=== PATIENT | female | born 1980 | race Caucasian/White ===

== ENCOUNTER 2017-12-25 01:54 | Observation (INO) | payer BC ==
[2017-12-25 02:50] VITALS: BP 113/56; PULSE 65
[2017-12-25 03:20] LABS: Appearance SLIGHTLY CLOUDY (CLEAR); Bilirubin NEGATIVE (NEGATIVE); Blood NEGATIVE Ery/ul (0-5); Glucose NEGATIVE (NEGATIVE); Ketones TRACE (NEGATIVE); Leukocyte Esterase NEGATIVE (NEGATIVE); Nitrite NEGATIVE (NEGATIVE); Protein,Urine Dip NEGATIVE (Negative); Specific Gravity 1.017 (1.005-1.025); Urobilinogen 4 mg/dL (0-1)
== END 2017-12-25 03:50 | disposition home or self-care (01) ==
LOC: MED SURG 01:54 → MERGE 01:54
PROVIDERS: ADMIT Family Medicine; ATTEND Family Medicine
DX: Z34.83 Encounter for supervision of other normal pregnancy, third trimester (principal)
CPT/HCPCS: 81001; G0378

== ENCOUNTER 2018-03-04 05:07 | Inpatient (IN) | payer BC ==
[~2018-03-04 05:07] MED LIST: BICITRA 30 ML CUP PO SCH; CEFAZOLIN 2 GM-D5W BAG** 2 GM/50 ML ML IV SCH; Lactated Ringers 1,000 ML IV ONE; Lactated Ringers 1,000 ML IV SCH; Pepcid 20 MG VIAL IV SCH; Reglan 10 MG/2 ML IV SCH
[2018-03-04 05:46] LABS: Hematocrit 40.2 % (35-47); Hemoglobin 13.6 gm/dl (12.0-16.0); Mean Cell Volume 89.5 fl (78-100); Mean Corpuscular Hemoglobin 30.3 pg (26-32); Mean Corpuscular Hgb Concent. 33.8 g/dl (32-36); Platelet Count 229 K/mm3 (150-450); Red Blood Count 4.49 M/mm3 (4.1-5.4); Red Cell Distribution Width 13.9 % (11.5-14.0); White Blood Count 10.2 K/mm3 (4.0-10.5)
[2018-03-04 05:54] LABS: INR 0.97 (0.8-3.0); PROTIME 11.3 SECONDS (9.95-12.35)
[2018-03-04 05:57] LABS: PTT 29.2 SECONDS (25.3-37.0)
[2018-03-04 06:05] LABS: Appearance SLIGHTLY CLOUDY (CLEAR); Bacteria MANY /HPF (NEGATIVE); Bilirubin NEGATIVE (NEGATIVE); Blood NEGATIVE Ery/ul (0-5); Epithelial Cells FEW /HPF (FEW); Glucose NEGATIVE (NEGATIVE); Hyaline Casts 0-2 /LPF (0-2); Ketones NEGATIVE (NEGATIVE); Leukocyte Esterase SMALL (NEGATIVE); Nitrite NEGATIVE (NEGATIVE); Protein,Urine Dip NEGATIVE (Negative); Specific Gravity 1.014 (1.005-1.025); Urobilinogen 2 mg/dL (0-1)
[2018-03-04 06:12] LABS: Amphetamine,Urine NEGATIVE (NEGATIVE); Barbiturate,Urine NEGATIVE (NEGATIVE); Benzodiazepine,Urine NEGATIVE (NEGATIVE); Cocaine,Urine NEGATIVE (NEGATIVE); Methadone,Urine NEGATIVE (NEGATIVE); Opiate,Urine NEGATIVE (NEGATIVE); PCP,Urine NEGATIVE (NEGATIVE); THC,Urine NEGATIVE (NEGATIVE)
[2018-03-04 06:52] LABS: ABO TYPING A; Antibody Screen NEGATIVE (NEGATIVE); RH TYPING POSITIVE
[2018-03-04] MEDS ORDERED: Lactated Ringers 1,000 ML IV ONE (08:06)
[2018-03-04] MEDS ORDERED: DEMEROL 50 MG ONE (08:32)
--- NOTE | 2018-03-04 08:48 | OP ---
SURGERY DATE/TIME: 03/04/2018 0703 PREOPERATIVE DIAGNOSES: 1) History of prior section. 2) Term intrauterine . 3) Chronic hypertension. 4) Desires permanent sterilization. POSTOPERATIVE DIAGNOSES: 1) History of prior section. 2) Term intrauterine . 3) Chronic hypertension. 4) Desires permanent sterilization. PROCEDURES: 1) Repeat low transverse section. 2) Bilateral tubal ligation. SURGEON: Lenard Alvarado M.D. ESTIMATED BLOOD LOSS: 400 cc. IV FLUIDS: 2 liters of crystalloid. URINE OUTPUT: 100 cc of clear straw-colored urine. ANESTHESIA: Spinal by Raoul Saavedra CRNA. SPECIMENS: Bilateral fallopian tube segments. DESCRIPTION OF PROCEDURE: After informed written consent was obtained, the patient was taken to the operating room. She underwent spinal anesthesia and was prepped and draped in the usual sterile fashion. After adequate level of anesthesia was assessed, a low transverse skin incision was made through the area of prior scar down to the level of the fascia which was nicked on both sides of the midline and extended in horizontal fashion. The superior edge of the fascia was grasped with Arben clamps and the underlying rectus muscles were dissected free. The same was repeated inferiorly. The peritoneal cavity was opened in a blunt fashion carefully. Bladder flap was then created and reflected over the lower uterine segment. A horizontal uterine incision was made by knife and carried down to the level of the amniotic membranes which were carefully artificially ruptured. A viable male infant was delivered from the vertex presentation. He had a loose nuchal cord x1 which was reduced at the time of deliver. Oropharynx and nares were bulb suctioned free and then he was handed off to the awaiting nursery team. When attempting to exteriorize the uterus, it was noted there were extensive adhesions between the posterior surface of the rectus muscles in the anterior surface of the uterine wall. These were carefully taken down with electrocautery to free up the uterus and the uterus was exteriorized. The uterine incision was closed with #1 chromic in a running locked fashion. Good closure and good hemostasis were achieved. There was an area of bleeding at the left lateral aspect of the incision which was reinforced with a second layer of chromic and good hemostasis was achieved. The right fallopian tube was identified and carried down to the fimbrial edge, grasped with a [place] and cautery used to make a window in the mesoappendix. The proximal and distal tube segments of the tube were then ligated with chromic tie and the interceding tube segment was dissected free with Metzenbaum scissors. The free edge of the tube was visible and cauterized with electrocautery. The same was repeated on the left side. Both tube segments were submitted for pathology. The posterior cul-de-sac was wiped free of blood and clot. The uterus was returned to the peritoneal cavity. Lateral gutters were wiped free of blood and clot and the uterine incision was again verified to have good closure and good hemostasis. Next, the fascia was closed with 0 Vicryl in a running fashion with good closure and good hemostasis were achieved. Subcutaneous fat was irrigated with warm, sterile saline and the skin layer was closed with 4-0 undyed Vicryl in subcuticular fashion. Steri-Strips and occlusive dressing were placed over the incision. The patient was transferred to the recovery room in good condition.
[2018-03-04] MEDS ORDERED: Zofran 4 MG/2 ML VIAL IV PRN (09:00)
[2018-03-04] MEDS ORDERED: DEMEROL 50 MG IV PRN (09:00)
[2018-03-04] MEDS ORDERED: TYLENOL EXTRA STRENGTH 500 MG PO PRN (09:00)
[2018-03-04] MEDS ORDERED: CLARITIN 10 MG PO PRN (09:00)
[2018-03-04] MEDS ORDERED: BENADRYL 50 MG/ML IV PRN (09:00)
[2018-03-04] MEDS ORDERED: MORPHINE SULFATE 2 MG INJ IV PRN (09:00)
[2018-03-04] MEDS ORDERED: PERCOCET TABLET 5/325MG PO PRN (09:00)
[2018-03-04] MEDS ORDERED: Dulcolax 10 MG SUPP PR PRN (09:00)
[2018-03-04] MEDS ORDERED: LANSINOH 40 GM TOP PRN (09:00)
[2018-03-04] MEDS ORDERED: Nubain 10 MG/ML IV PRN (09:00)
[2018-03-04] MEDS ORDERED: HOLD NARCOTIC ANALGESICS AND SEDATIVES X24 HR MC PRN (09:00)
[2018-03-04] MEDS ORDERED: Anucort-HC SUPPOSITORY PR PRN (09:00)
[2018-03-04] MEDS ORDERED: Dermoplast Spray TP PRN (09:00)
[2018-03-04] MEDS ORDERED: Narcan 0.4 MG/ML IV PRN (09:00)
[2018-03-04] MEDS ORDERED: Ambien 10 MG PO PRN (09:00)
[2018-03-04] MEDS ORDERED: CORTISONE 1% CREAM TP PRN (09:00)
[2018-03-04] MEDS ORDERED: Astramorph-Pf 5 MG/10 ML IV ONE (09:17)
[2018-03-04] MEDS ORDERED: SUBLIMAZE 100 MCG/2 ML IV ONE (09:17)
[2018-03-04] MEDS: Dextrose 5%-Lr IV Solution 1000 ML 1,000 ML IV SCH ×2 (09:54→18:01)
[2018-03-04 10:26] LABS: Appearance CLEAR (CLEAR); Bilirubin NEGATIVE (NEGATIVE); Blood NEGATIVE Ery/ul (0-5); Epithelial Cells RARE /HPF (FEW); Glucose NEGATIVE (NEGATIVE); Ketones NEGATIVE (NEGATIVE); Leukocyte Esterase NEGATIVE (NEGATIVE); Mucus SLIGHT /HPF (NEGATIVE); Nitrite NEGATIVE (NEGATIVE); Protein,Urine Dip NEGATIVE (Negative); Urobilinogen 4 mg/dL (0-1)
[2018-03-04] MEDS: THERAGRAN MULTIVITAMIN PO SCH (15:01)
[2018-03-04] MEDS: Trandate 100 MG PO SCH ×3 (15:01→22:46)
[2018-03-04] MEDS ORDERED: Zofran 4 MG/2 ML VIAL IV ONE (15:59)
[2018-03-04] MEDS ORDERED: Decadron 4 MG INJ IV ONE (15:59)
[2018-03-04] MEDS ORDERED: Naropin 0.5% 30 ML VIAL IJ ONE (15:59)
[2018-03-04] MEDS ORDERED: Marcaine Spinal Ampul IJ ONE (15:59)
[2018-03-04] MEDS ORDERED: TORAdol 30 mg Injection IV ONE (15:59)
[2018-03-04] MEDS ORDERED: Xylocaine-Mpf 2% 5 Ml Vial IJ ONE (15:59)
[2018-03-04] MEDS ORDERED: Pitocin 10 UNITS/ML IV ONE (15:59)
[2018-03-04] MEDS: Colace 100 MG PO SCH (21:27)
[2018-03-04] MEDS: MOTRIN 400 MG PO PRN (23:51)
[2018-03-04] MEDS: Mylicon 80MG PO PRN (23:54)
[2018-03-05 05:27] VITALS: O2SAT 98
[2018-03-05 05:37] LABS: Hematocrit 32.2 % (35-47); Hemoglobin 10.6 gm/dl (12.0-16.0); Mean Corpuscular Hemoglobin 29.9 pg (26-32); Mean Corpuscular Hgb Concent. 32.9 g/dl (32-36); Platelet Count 238 K/mm3 (150-450); Red Blood Count 3.54 M/mm3 (4.1-5.4); Red Cell Distribution Width 13.5 % (11.5-14.0); White Blood Count 15.2 K/mm3 (4.0-10.5)
[2018-03-05 07:37] LABS: BAND 12 % (0.0-2.0); Lymphocytes 16 % (24-44); Monocyte 5 % (0.0-12.0); Neutrophils 67 % (36.0-66.0); Total Cells Counted 100
[2018-03-05 07:39] LABS: Platelet Estimate NORMAL (NORMAL)
[2018-03-05] MEDS ORDERED: Phenergan 25 MG INJ IM PRN (09:00)
[2018-03-05] MEDS ORDERED: DEMEROL 75 MG IM PRN (09:00)
[2018-03-05] MEDS: Colace 100 MG PO SCH ×2 (09:24→21:30)
[2018-03-05] MEDS: FERREX 150 PO SCH (09:24)
[2018-03-05] MEDS: NORCO 5/325 MG PO PRN ×2 (09:24→21:30)
[2018-03-05] MEDS: Mylicon 80MG PO PRN ×2 (09:25→19:55)
[2018-03-05] MEDS: Trandate 100 MG PO SCH ×2 (09:25→21:30)
[2018-03-05] MEDS: THERAGRAN MULTIVITAMIN PO SCH (09:25)
[2018-03-05] MEDS ORDERED: [UNRECOGNIZED DRUG - REMARK] PO SCH (10:00)
[2018-03-05] MEDS: MOTRIN 400 MG PO PRN ×2 (11:31→17:46)
[2018-03-06] MEDS: NORCO 5/325 MG PO PRN (03:07)
[2018-03-06] MEDS: Mylicon 80MG PO PRN ×2 (03:25→09:07)
[2018-03-06 05:15] VITALS: PULSE 71
[2018-03-06] MEDS: Trandate 100 MG PO SCH (08:51)
[2018-03-06] MEDS: Colace 100 MG PO SCH ×2 (08:51→09:47)
[2018-03-06] MEDS: THERAGRAN MULTIVITAMIN PO SCH (08:51)
[2018-03-06] MEDS: MOTRIN 400 MG PO PRN (08:51)
[2018-03-06] MEDS: FERREX 150 PO SCH ×2 (08:52→09:47)
[2018-03-06 09:46] VITALS: BP 113/57
--- NOTE | 2018-03-06 10:56 | PCM.DS ---
Discharge Summary Date of Admission: 03/04/18 05:07 Admitting Physician: JOSEPH KING Consults: Consults on Case 03/04/18 05:00 Notify Anesthesia Provider ROUTINE Notify Physician OF ADMISSION Primary Care Provider: JOSEPH KING Allergies Allergies amlodipine besylate [From [facility]] Allergy (Intermediate, Verified 12/28/17 08: 08) Swelling of Feet lisinopril Allergy (Mild, Verified 12/28/17 08:08) Cough Hospital Summary - Hospital Course Hospital Course: Pt came in 37 yo at 39 weeks for repeat and BTL. pre-existing HTN. She had without complication. . Hgb from 13.6 on admission to 10.6 on the first postoperative day. Her urine culture was negative. BP have been well controlled on labetalol 100mg po BID. Her bleeding is light. she is taking norco and ibuprofen for pain, with mylicon drops for gas pain. Will be discharged to home today with baby. - Vitals & Intake/Output Vital Signs: Vital Signs Temperature 97.9 F 03/06/18 02:00 Pulse Rate 71 03/06/18 09:00 Respiratory Rate 18 03/06/18 09:00 Blood Pressure 113/57 03/06/18 09:00 O2 Sat by Pulse Oximetry 98 03/05/18 05:00 Intake & Output: Intake & Output 03/03/18 03/04/18 03/05/18 03/06/18 11:59 11:59 11:59 11:59 Intake Total 800 1100 Output Total 3150 Balance -2350 1100 Weight 99.79 kg - Lab Result Diagrams: 03/05/18 05:10 Micro Results-Entire Visit: Microbiology 03/04/18 09:56 Urine Culture - Preliminary Catherized NO GROWTH TO DATE - Procedures and Test Procedures and Tests throughout Hospitalization: Therapy Orders & Screens 03/04/18 08:10 Standby Routine Comment: Diagnosis: Repeat Section with Bilateral Tubal Ligation Discharge Exam General Appearance: no apparent distress, alert, obese Neurologic Exam: oriented x 3, cooperative Skin Exam: normal color, warm, dry, No rash Respiratory Exam: normal breath sounds, lungs clear, No crackles/rales, No rhonchi, No wheezing Cardiovascular Exam: regular rate/rhythm, normal heart sounds, No murmur Gastrointestinal/Abdomen Exam: soft, normal bowel sounds, other (fundus firm under umbilicus wound with dried blood, well approximated, no exudate/erythema.) , No tenderness Extremity Exam: swelling (trace pretibial edema bilat), other (pat refl 2+ bilat. 1 beat clonus on L, none on R) Back Exam: normal inspection, No rash Final Diagnosis/Problem List - Final Discharge Diagnosis/Problem (1) Status post delivery Current Visit: Yes Status: Acute Assessment & Plan: doing great, POD #2 today. Home with baby. . (2) Hypertension Current Visit: No Status: Acute Assessment & Plan: BP well controlled on labetalol. discussed warning s/sx for pre-eclampsia. - Discharge Disposition: Home, Self-Care Condition: Stable Prescriptions: No Action Labetalol HCl 100 mg [Trandate 100 MG] 100 mg PO BID Doxylamine Succinate/Vit B6 [Diclegis Dr 10-10 mg Tablet] 2 tab PO HS Pnv No.95/Ferrous Fum/Folic AC [ Vitamins Tablet] 1 tab PO DAILY Follow up with: JOSEPH KING MD [Primary Care Provider] - 1 Week
--- NOTE | 2018-03-06 11:02 | PCM.DCORD ---
- Discharge Disposition: Home, Self-Care Condition: Good Prescriptions: New Docusate Sodium 100 mg [Colace 100 MG] 100 mg PO BID PRN #30 capsule PRN Reason: Constipation Ibuprofen 600 mg PO TID PRN #35 tablet PRN Reason: Pain Simethicone 80 mg [Mylicon 80MG] 80 mg PO QID PRN PRN #60 tab.chew PRN Reason: Indigestion Hydrocodone Bit/Acetaminophen [[place] 5-325 Tablet] 1 each PO Q4HPRN PRN #30 tablet MDD 6 PRN Reason: Severe Pain Continue Labetalol HCl 100 mg [Trandate 100 MG] 100 mg PO BID Pnv No.95/Ferrous Fum/Folic AC [ Vitamins Tablet] 1 tab PO DAILY Discontinued Doxylamine Succinate/Vit B6 [Diclegis Dr 10-10 mg Tablet] 2 tab PO HS Additional Instructions: Call [facility] with any blood pressures over 160 systolic or over 110 diastolic. Call or go to ER/LR with severe headache, seeing spots, sudden increase in swelling, or right upper quadrant pain. Follow up with: JOSEPH KING MD [Primary Care Provider] - 1 Week
[2018-03-06 11:52] LABS: ALBUMIN 3.3 g/dL (3.5-5.0); BILIRUBIN,TOTAL 0.3 mg/dL (0.2-1.3); Direct Bilirubin 0.3 mg/dL (0.0-0.4); Total Protein 6.1 g/dL (6.3-8.2)
== END 2018-03-06 13:40 | disposition home or self-care (01) | DRG 784 ==
LOC: OB 05:07
PROVIDERS: ADMIT Family Medicine; ATTEND Family Medicine
PROC: 10D00Z1 Extraction of Products of Conception, Low, Open Approach (ICD-10-PCS; principal; 2018-03-04)
PROC: 0UL70ZZ Occlusion of Bilateral Fallopian Tubes, Open Approach (ICD-10-PCS; 2018-03-04)
DX: O34.211 Maternal care for low transverse scar from previous cesarean delivery (principal); E71.54 Other peroxisomal disorders; O75.82 Onset (spontaneous) of labor after 37 completed weeks of gestation but before 39 completed weeks gestation, with delivery by (planned) cesarean section; Z3A.39 39 weeks gestation of pregnancy; Z37.0 Single live birth; Z30.2 Encounter for sterilization; O09.523 Supervision of elderly multigravida, third trimester
CPT/HCPCS: 36415; 64488; 76937; 76942; 80076; 80307; 81001; 85025; 85027; 85610; 85730; 86850; 86900; 86901; 87086; 88302; 94799; J0690; J1100; J1885; J2175; J2274; J2405; J2590; J2795; J3010; A9270-GY

== ENCOUNTER 2018-03-09 17:42 | Observation (INO) | payer BC ==
[2018-03-09 18:11] LABS: BASOPHIL % 0.4 % (0.0-0.4); Basophil (Absolute #) 0.03 (0-0.4); Eosinophil % 2.2 % (0.00-5.0); Eosinophil (Absolute #) 0.17 (0-0.5); Granulocytes % 64.3 % (36.0-66.0); Hematocrit 33.9 % (35-47); Lymphocyte (Absolute #) 2.05 (1.0-4.6); Mean Cell Volume 91.9 fl (78-100); Mean Corpuscular Hemoglobin 29.8 pg (26-32); Mean Corpuscular Hgb Concent. 32.4 g/dl (32-36); Mean Platelet Volume 9.7 fl (6-9.5); Monocyte (Absolute #) 0.56 (0.0-1.3); Monocytes % 7.1 % (0.0-12.0); Platelet Count 301 K/mm3 (150-450); Red Blood Count 3.69 M/mm3 (4.1-5.4); Red Cell Distribution Width 13.4 % (11.5-14.0); White Blood Count 7.9 K/mm3 (4.0-10.5)
--- NOTE | 2018-03-09 18:11 | ERPHSYRPT ---
- History of Present Illness Time Seen by Provider: 03/09/18 18:06 Source: patient Exam Limitations: no limitations Physician History: 37-year-old white female with history of high blood pressure, cyst on her kidneys, fatty liver Who just had a delivery by on March 04, 2018. Arrives with complaint of feeling as if she has pressure in her head states that she has swelling in her feet. Symptoms since Thursday 3 days ago. No vomiting. States she's had some belly pain right upper quadrant. Patient on arrival with a blood pressure of 123/90 She does state that her blood pressure is been elevated at home. Past medical history includes high blood pressure, cyst on her kidney, fatty liver. Past surgical history is includes 2 tubal ligation. Timing/Duration: day(s) (3 days) Severity: moderate Modifying Factors: Improves With: nothing Associated Symptoms: abdominal pain (right upper quadrant abdominal pain), headaches, No nausea, No vomiting, No shortness of breath, No heartburn, No diaphoresis, No cough, No chills, No chest pain, No fever, No loss of appetite, No malaise, No syncope, No seizure, No weakness Allergies/Adverse Reactions: amlodipine besylate [From [facility]] Allergy (Intermediate, Verified 03/09/18 18: 16) Swelling of Feet lisinopril Allergy (Mild, Verified 03/09/18 18:16) Cough Home Medications: Labetalol HCl 100 mg [Trandate 100 MG] 100 mg PO BID 10/15/17 [History] Pnv No.95/Ferrous Fum/Folic AC [ Vitamins Tablet] 1 tab PO DAILY [History] Hx Tetanus, Diphtheria Vaccination/Date Given: Yes Hx Influenza Vaccination/Date Given: No Hx Pneumococcal Vaccination/Date Given: No - Review of Systems Constitutional: No Fever, No Chills Eyes: No Symptoms Ears, Nose, & Throat: No Symptoms Respiratory: No Cough, No Dyspnea Cardiac: Edema (Swelling both feet) Abdominal/Gastrointestinal: No Abdominal Pain, No Nausea, No Vomiting, No Diarrhea Genitourinary Symptoms: No Dysuria Musculoskeletal: No Back Pain, No Neck Pain Skin: No Rash Neurological: Headache, No Dizziness, No Focal Weakness, No Sensory Changes Psychological: No Symptoms Endocrine: No Symptoms All Other Systems: Reviewed and Negative - Past Medical History Pertinent Past Medical History: Yes Neurological History: No Pertinent History ENT History: No Pertinent History Cardiac History: Hypertension Respiratory History: No Pertinent History Endocrine Medical History: No Pertinent History Musculoskeletal History: No Pertinent History GI Medical History: Other History: Other Psycho-Social History: Other Female Reproductive Disorders: No Pertinent History Other Medical History: cysts on kidneys--been to kidney specialist. fatty liver - Past Surgical History Past Surgical History: Yes Neuro Surgical History: No Pertinent History Cardiac: No Pertinent History Respiratory: No Pertinent History Gastrointestinal: No Pertinent History Genitourinary: No Pertinent History Musculoskeletal: No Pertinent History Female Surgical History: Dilation & Curettage, Section Other Surgical History: d/c - Social History Smoking Status: Former smoker How long have you smoked: 10 years Exposure to second hand smoke: No Alcohol Use: Socially Drug Use: none Patient Lives Alone: No Significant Family History: heart disease, hypertension - Nursing Vital Signs Nursing Vital Signs: Initial Vital Signs Pulse Rate 55 L 03/09/18 18:04 Respiratory Rate 20 03/09/18 18:04 Blood Pressure 123/90 03/09/18 18:04 O2 Sat by Pulse Oximetry 99 03/09/18 18:04 Pain Scale Pain Intensity 4 - Physical Exam General Appearance: alert, anxiety Eye Exam: PERRL/EOMI, eyes nml inspection Ears, Nose, Throat Exam: normal ENT inspection, TMs normal, pharynx normal, moist mucous membranes Neck Exam: normal inspection, non-tender, supple, full range of motion Respiratory Exam: normal breath sounds, lungs clear, No respiratory distress Cardiovascular Exam: regular rate/rhythm, normal heart sounds, normal peripheral pulses, capillary refill <2 sec ( s settle down will), edema (2+ edema to feet), pulse deficit Gastrointestinal/Abdomen Exam: soft, normal bowel sounds, other ( incision clean Steri-Strips in place no drainage), No tenderness, No mass Back Exam: normal inspection, normal range of motion, No CVA tenderness, No vertebral tenderness Extremity Exam: normal inspection, normal range of motion, pelvis stable Neurologic Exam: alert, oriented x 3, cooperative, normal mood/affect, nml cerebellar function, nml station & gait, sensation nml, other (no clonus ), No motor deficits Skin Exam: normal color Lymphatic Exam: No adenopathy SpO2 Interpretation: normal (99%) - Course Nursing assessment & vital signs reviewed: Yes EKG Interpreted by Me: RATE (46 bpm), Sinus Rao, NORMAL AXIS, Other (EKG: Sinus bradycardia, 46 bpm, normal axis, no acute ST or T wave changes.) Ordered Tests: Active Orders 24 hr Category Date Time Status EKG-ER Only STAT Care 03/09/18 17:59 Active IV Insertion STAT Care 03/09/18 17:59 Active AMYLASE Stat Lab 03/09/18 18:11 Completed CBC W DIFF Stat Lab 03/09/18 18:11 Completed CMP Stat Lab 03/09/18 18:11 Completed CULTURE,URINE Stat Lab 03/09/18 18:11 Received LIPASE Stat Lab 03/09/18 18:11 Completed UA W/RFX UR CULTURE Stat Lab 03/09/18 18:11 Completed Uric Acid Stat Lab 03/09/18 18:11 Completed Transfer Order Routine Transfer 03/09/18 Ordered Lab/Rad Data: Laboratory Result Diagrams 03/09/18 18:11 03/09/18 18:11 Laboratory Results 03/09/18 03/09/18 03/09/18 Range/Units 18:11 18:11 18:11 WBC (4.0-10.5) K/mm3 RBC (4.1-5.4) M/mm3 Hgb (12.0-16.0) gm/dl Hct (35-47) % MCV (78-100) fl MCH (26-32) pg MCHC (32-36) g/dl RDW (11.5-14.0) % Plt Count (150-450) K/mm3 MPV (6-9.5) fl Gran % (36.0-66.0) % Eos # (Auto) (0-0.5) Absolute Lymphs (auto) (1.0-4.6) Absolute Monos (auto) (0.0-1.3) Lymphocytes % (24.0-44.0) % Monocytes % (0.0-12.0) % Eosinophils % (0.00-5.0) % Basophils % (0.0-0.4) % Absolute Granulocytes (1.4-6.9) Basophils # (0-0.4) Sodium 142 (137-145) mmol/L Potassium 3.7 (3.5-5.1) mmol/L Chloride 108 H (98-107) mmol/L Carbon Dioxide 23 (22-30) mmol/L Anion Gap 13.8 (5-15) MEQ/L BUN 13 (7-17) mg/dL Creatinine 0.53 (0.52-1.04) mg/dL Estimated GFR > 60.0 ML/MIN Glucose 84 (74-106) mg/dL Uric Acid 5.7 (2.6-6.0) mg/dL Calcium 9.2 (8.4-10.2) mg/dL Total Bilirubin 0.50 (0.2-1.3) mg/dL AST 31 (14-36) U/L ALT 34 (0-35) U/L Alkaline Phosphatase 131 H (38-126) U/L Serum Total Protein 6.5 (6.3-8.2) g/dL Albumin 3.7 (3.5-5.0) g/dL Amylase < 30 L (30-110) U/L Lipase 46 (23-300) U/L Urine Color ART (YELLOW) Urine Appearance SLIGHTLY CLOUDY (CLEAR) Urine pH 5.0 (5-6) Ur Specific [place] 1.036 (1.005-1.025) Urine Protein 100 (Negative) Urine Ketones TRACE (NEGATIVE) Urine Blood MODERATE (0-5) Jg/ul Urine Nitrite NEGATIVE (NEGATIVE) Urine Bilirubin SMALL (NEGATIVE) Urine Urobilinogen 4 (0-1) mg/dL Ur Leukocyte Esterase TRACE (NEGATIVE) Urine WBC (Auto) 6-10 (0-5) /HPF Urine RBC (Auto) 3-5 (0-2) /HPF U Epithel Cells (Auto) FEW (FEW) /HPF Urine Bacteria (Auto) RARE (NEGATIVE) /HPF U Non-Squamous Epi Cells RARE (FEW) /HPF Unidentified Crystals 2-5 (NEGATIVE) /HPF Urine Mucus (Auto) MODERATE (NEGATIVE) /HPF Urine Culture Reflexed YES (NO) Urine Glucose NEGATIVE (NEGATIVE) mg/dL 03/09/18 Range/Units 18:11 WBC 7.9 (4.0-10.5) K/mm3 RBC 3.69 L (4.1-5.4) M/mm3 Hgb 11.0 L (12.0-16.0) gm/dl Hct 33.9 L (35-47) % MCV 91.9 (78-100) fl MCH 29.8 (26-32) pg MCHC 32.4 (32-36) g/dl RDW 13.4 (11.5-14.0) % Plt Count 301 (150-450) K/mm3 MPV 9.7 H (6-9.5) fl Gran % 64.3 (36.0-66.0) % Eos # (Auto) 0.17 (0-0.5) Absolute Lymphs (auto) 2.05 (1.0-4.6) Absolute Monos (auto) 0.56 (0.0-1.3) Lymphocytes % 26.0 (24.0-44.0) % Monocytes % 7.1 (0.0-12.0) % Eosinophils % 2.2 (0.00-5.0) % Basophils % 0.4 (0.0-0.4) % Absolute Granulocytes 5.06 (1.4-6.9) Basophils # 0.03 (0-0.4) Sodium (137-145) mmol/L Potassium (3.5-5.1) mmol/L Chloride (98-107) mmol/L Carbon Dioxide (22-30) mmol/L Anion Gap (5-15) MEQ/L BUN (7-17) mg/dL Creatinine (0.52-1.04) mg/dL Estimated GFR ML/MIN Glucose (74-106) mg/dL Uric Acid (2.6-6.0) mg/dL Calcium (8.4-10.2) mg/dL Total Bilirubin (0.2-1.3) mg/dL AST (14-36) U/L ALT (0-35) U/L Alkaline Phosphatase (38-126) U/L Serum Total Protein (6.3-8.2) g/dL Albumin (3.5-5.0) g/dL Amylase (30-110) U/L Lipase (23-300) U/L Urine Color (YELLOW) Urine Appearance (CLEAR) Urine pH (5-6) Ur Specific [place] (1.005-1.025) Urine Protein (Negative) Urine Ketones (NEGATIVE) Urine Blood (0-5) Jg/ul Urine Nitrite (NEGATIVE) Urine Bilirubin (NEGATIVE) Urine Urobilinogen (0-1) mg/dL Ur Leukocyte Esterase (NEGATIVE) Urine WBC (Auto) (0-5) /HPF Urine RBC (Auto) (0-2) /HPF U Epithel Cells (Auto) (FEW) /HPF Urine Bacteria (Auto) (NEGATIVE) /HPF U Non-Squamous Epi Cells (FEW) /HPF Unidentified Crystals (NEGATIVE) /HPF Urine Mucus (Auto) (NEGATIVE) /HPF Urine Culture Reflexed (NO) Urine Glucose (NEGATIVE) mg/dL - Progress Progress: improved Progress Note: 03/09/18 18:52 37-year-old white female with history of recent on March 04, 2018 complains of feeling pressure in her head some blurry vision symptoms for the past 3 days patient has had swelling in her feet she's noted elevated blood pressures at home. On arrival patient with blood pressure of 123/90 heart rate is 55 patient with oxygen saturation of 99% patient is afebrile Labs uric acid 5.7 chemistry sodium 142 potassium 3.7 chloride 108 bicarbonate 23 BUN is 13 creatinine 0.53 glucose 84 AST is 31 a LT 34 alkaline phosphatase 131 amylase less than 30 lipase 46 total bilirubin 0.5 anion gap 13.8 patient's urine specific gravity 1.036 pH 5.0 protein 100 urobilinogen 4 there are 6-10 white cells negative nitrite and trace leukocyte esterase Patient appears to be stable she does have 2+ edema to her feet. She has negative clonus on examination. Patient is taking labetalol Patient's EKG sinus bradycardia 46 bpm normal axis no acute ST or T wave changes. I've discussed patient's case with Dr. Lamb Will place patient on observation will have blood pressures every hour 4 than every 4 hours we'll have her on telemetry Dr. Lamb will write for any blood pressure medications if needed. Will admit diagnosis 1 hypertension. 2 status post recent . 3 pedal edema. 4. headache - Departure Time of Disposition: 18:57 Departure Disposition: Observation Clinical Impression: status post recent C section, Pedal edema Hypertension Qualifiers: Hypertension type: unspecified Qualified Code(s): I10 - Essential (primary) hypertension Headache Qualifiers: Headache type: unspecified Headache chronicity pattern: acute headache Intractability: not intractable Qualified Code(s): R51 - Headache Condition: Fair Critical Care Time: No Referrals: JOSEPH KING MD [Primary Care Provider] -
[2018-03-09 18:18] VITALS: O2SAT 98
[2018-03-09 18:21] LABS: Appearance SLIGHTLY CLOUDY (CLEAR); Bacteria RARE /HPF (NEGATIVE); Bilirubin SMALL (NEGATIVE); Blood MODERATE Ery/ul (0-5); Epithelial Cells FEW /HPF (FEW); Glucose NEGATIVE (NEGATIVE); Ketones TRACE (NEGATIVE); Leukocyte Esterase TRACE (NEGATIVE); Mucus MODERATE /HPF (NEGATIVE); Nitrite NEGATIVE (NEGATIVE); Non-Squamous Epithelial Cells RARE /HPF (FEW); Protein,Urine Dip 100 (Negative); Specific Gravity 1.036 (1.005-1.025); Urobilinogen 4 mg/dL (0-1)
[2018-03-09 18:36] LABS: ALBUMIN 3.7 g/dL (3.5-5.0); ALKALINE PHOSPHATASE 131 U/L (38-126); AMYLASE < 30 U/L (30-110); ANION GAP 13.8 MEQ/L (5-15); BLOOD UREA NITROGEN 13 mg/dL (7-17); CHLORIDE 108 mmol/L (98-107); Calcium 9.2 mg/dL (8.4-10.2); Carbon Dioxide 23 mmol/L (22-30); Creatinine 1 0.53 mg/dL (0.52-1.04); Glucose 84 mg/dL (74-106); LIPASE 46 U/L (23-300); Potassium 3.7 mmol/L (3.5-5.1); SGOT/AST 31 U/L (14-36); SGPT/ALT 34 U/L (0-35); SODIUM 142 mmol/L (137-145); Total Protein 6.5 g/dL (6.3-8.2)
[2018-03-09] MEDS ORDERED: TYLENOL 325 MG PO PRN (19:34)
[2018-03-09] MEDS ORDERED: NORCO 5/325 MG PO PRN (21:26)
[2018-03-09] MEDS ORDERED: Mylicon 80MG PO PRN (21:32)
[2018-03-09] MEDS ORDERED: Adalat CC 30 MG TABLET PO ONE (21:43)
[2018-03-09] MEDS: MOTRIN 600 MG PO PRN (21:44)
[2018-03-09] MEDS: Adalat CC 30 MG TABLET PO SCH (21:45)
[2018-03-09] MEDS ORDERED: Colace 100 MG PO PRN (22:00)
[2018-03-10] MEDS: MOTRIN 600 MG PO PRN ×2 (03:51→12:27)
[2018-03-10 06:00] LABS: BASOPHIL % 0.3 % (0.0-0.4); Basophil (Absolute #) 0.02 (0-0.4); Eosinophil (Absolute #) 0.23 (0-0.5); Granulocytes % 65.2 % (36.0-66.0); Hematocrit 31.9 % (35-47); Hemoglobin 10.2 gm/dl (12.0-16.0); Lymphocyte (Absolute #) 1.83 (1.0-4.6); Lymphocytes % 23.6 % (24.0-44.0); Mean Cell Volume 93.3 fl (78-100); Mean Corpuscular Hemoglobin 29.8 pg (26-32); Monocyte (Absolute #) 0.61 (0.0-1.3); Monocytes % 7.9 % (0.0-12.0); Platelet Count 289 K/mm3 (150-450); Red Blood Count 3.42 M/mm3 (4.1-5.4); Red Cell Distribution Width 13.4 % (11.5-14.0); White Blood Count 7.8 K/mm3 (4.0-10.5)
[2018-03-10 06:20] LABS: ALBUMIN 3.1 g/dL (3.5-5.0); ALKALINE PHOSPHATASE 112 U/L (38-126); ANION GAP 10.7 MEQ/L (5-15); BLOOD UREA NITROGEN 14 mg/dL (7-17); CHLORIDE 108 mmol/L (98-107); Calcium 8.3 mg/dL (8.4-10.2); Carbon Dioxide 26 mmol/L (22-30); Creatinine 1 0.66 mg/dL (0.52-1.04); Glucose 86 mg/dL (74-106); Potassium 3.9 mmol/L (3.5-5.1); SGOT/AST 22 U/L (14-36); SGPT/ALT 28 U/L (0-35); SODIUM 141 mmol/L (137-145); Total Protein 5.7 g/dL (6.3-8.2)
--- NOTE | 2018-03-10 08:50 | PCM.HP ---
History of Present Illness - Chief Complaint Chief Complaint: hypertension History of Present Illness: is a 37 year old female with chronic hypertension who had a repeat section with tubal ligation performed by myself on 03/04/18,. she reports that she developed significant headache the day after discharge on 03/07 , has persisted. has been taking ibuprofen and norco for postoperative pain and her incision is doing well, mild lochia. has point tenderness and pressure behind her right eye. She was concerned with some pain in her side yesterday so came for evaluation, she does have some swelling after her surgery but she reports it seems improved today. she has not had any visual changes but does feel like when she moves her head to the side her vision is "delayed". she has no nausea or vomiting, no fever, no photophobia or phonophobia and there is no postural component to her headache. she has not had much sleep in the last few days and feels this might be a contributing factor. - Review of Systems Constitutional: No Fever, No Chills Respiratory: No Cough, No Short Of Breath Cardiac: No Chest Pain, No Edema, No Syncope Abdominal/Gastrointestinal: No Abdominal Pain, No Nausea, No Vomiting, No Diarrhea Neurological: Headache All Other Systems: Reviewed and Negative Medications & Allergies Home Medications: Home Medication List Labetalol HCl 100 mg [Trandate 100 MG] 100 mg PO BID 10/15/17 [History Confirmed 03/09/18] Docusate Sodium 100 mg [Colace 100 MG] 100 mg PO BID PRN #30 capsule 03/06 [Rx Confirmed 03/09/18] Hydrocodone Bit/Acetaminophen [[place] 5-325 Tablet] 1 each PO Q4HPRN PRN #30 tablet MDD 6 03/06/18 [Rx Confirmed 03/09/18] Ibuprofen 600 mg PO TID PRN #35 tablet 03/06/18 [Rx Confirmed 03/09/18] Simethicone 80 mg [Mylicon 80MG] 80 mg PO QID PRN PRN #60 tab.chew [Rx Confirmed 03/09/18] Allergies/Adverse Reactions: Allergies Allergy/AdvReac Type Severity Reaction Status Date / Time amlodipine besylate Allergy Intermediate Swelling Verified 03/09/18 18:16 [From [facility]] of Feet lisinopril Allergy Mild Cough Verified 03/09/18 18:16 - Past Medical History Past Medical History: Yes Neurological History: No Pertinent History ENT History: No Pertinent History Cardiac History: Hypertension Respiratory History: No Pertinent History Endocrine Medical History: No Pertinent History Musculoskelatal History: No Pertinent History GI Medical History: Other History: Other Pyscho-Social History: Other Reproductive Disorders: No Pertinent History Comment: cysts on kidneys--been to kidney specialist. fatty liver - Female History Hx Last Menstrual Period: 5 days PP Are you now?: No - Past Surgical History Past Surgical History: Yes Neuro Surgical History: No Pertinent History Cardiac History: No Pertinent History Respiratory Surgery: No Pertinent History GI Surgical History: No Pertinent History Genitourinary Surgical Hx: No Pertinent History Musculskeletal Surgical Hx: No Pertinent History Female Surgical History: Dilation & Curettage, Section, Tubal Ligation Other Surgical History: d/c - Social History Smoking Status: Former smoker How long have you smoked: 10 years Exposure to second hand smoke: No Alcohol: None Drug Use: none Significant Family History: heart disease, hypertension - Physical Exam Vital Signs: Vital Signs - 24 hr Temp Pulse Resp BP Pulse Ox 03/10/18 03:53 97.7 F 67 18 124/59 03/09/18 23:50 98.0 F 69 18 119/56 98 03/09/18 21:00 98 03/09/18 19:56 97.9 F 52 L 18 138/63 03/09/18 19:20 54 L 18 112/67 03/09/18 19:07 54 L 20 137/73 98 03/09/18 18:42 98.6 F 59 L 18 125/63 98 03/09/18 18:16 52 L 18 128/86 98 03/09/18 18:04 55 L 20 123/90 99 General Appearance: no apparent distress, alert Neurologic Exam: alert, oriented x 3, cooperative, normal mood/affect, nml cerebellar function, nml station & gait, sensation nml, No motor deficits Eye Exam: PERRL/EOMI, eyes nml inspection Ears, Nose, Throat Exam: other (frontal tenderness on the right and right maxillary tenderness present) Respiratory Exam: normal breath sounds, lungs clear, No respiratory distress Cardiovascular Exam: regular rate/rhythm, normal heart sounds, normal peripheral pulses Gastrointestinal/Abdomen Exam: soft, normal bowel sounds, other (incision clean , dry, intact and well approximated.), No tenderness, No mass Extremity Exam: normal inspection, normal range of motion, pelvis stable Skin Exam: normal color, warm, dry, No rash Results - Labs Lab/Micro Results: Lab Results-Last 24 Hours 03/09/18 03/09/18 03/09/18 Range/Units 18:11 18:11 18:11 WBC 7.9 (4.0-10.5) K/mm3 RBC 3.69 L (4.1-5.4) M/mm3 Hgb 11.0 L (12.0-16.0) gm/dl Hct 33.9 L (35-47) % MCV 91.9 (78-100) fl MCH 29.8 (26-32) pg MCHC 32.4 (32-36) g/dl RDW 13.4 (11.5-14.0) % Plt Count 301 (150-450) K/mm3 MPV 9.7 H (6-9.5) fl Gran % 64.3 (36.0-66.0) % Eos # (Auto) 0.17 (0-0.5) Absolute Lymphs (auto) 2.05 (1.0-4.6) Absolute Monos (auto) 0.56 (0.0-1.3) Lymphocytes % 26.0 (24.0-44.0) % Monocytes % 7.1 (0.0-12.0) % Eosinophils % 2.2 (0.00-5.0) % Basophils % 0.4 (0.0-0.4) % Absolute Granulocytes 5.06 (1.4-6.9) Basophils # 0.03 (0-0.4) Sodium 142 (137-145) mmol/L Potassium 3.7 (3.5-5.1) mmol/L Chloride 108 H (98-107) mmol/L Carbon Dioxide 23 (22-30) mmol/L Anion Gap 13.8 (5-15) MEQ/L BUN 13 (7-17) mg/dL Creatinine 0.53 (0.52-1.04) mg/dL Estimated GFR > 60.0 ML/MIN Glucose 84 (74-106) mg/dL Uric Acid 5.7 (2.6-6.0) mg/dL Calcium 9.2 (8.4-10.2) mg/dL Total Bilirubin 0.50 (0.2-1.3) mg/dL AST 31 (14-36) U/L ALT 34 (0-35) U/L Alkaline Phosphatase 131 H (38-126) U/L Serum Total Protein 6.5 (6.3-8.2) g/dL Albumin 3.7 (3.5-5.0) g/dL Amylase < 30 L (30-110) U/L Lipase 46 (23-300) U/L Urine Color (YELLOW) Urine Appearance (CLEAR) Urine pH (5-6) Ur Specific [place] (1.005-1.025) Urine Protein (Negative) Urine Ketones (NEGATIVE) Urine Blood (0-5) Jg/ul Urine Nitrite (NEGATIVE) Urine Bilirubin (NEGATIVE) Urine Urobilinogen (0-1) mg/dL Ur Leukocyte Esterase (NEGATIVE) Urine WBC (Auto) (0-5) /HPF Urine RBC (Auto) (0-2) /HPF U Epithel Cells (Auto) (FEW) /HPF Urine Bacteria (Auto) (NEGATIVE) /HPF U Non-Squamous Epi Cells (FEW) /HPF Unidentified Crystals (NEGATIVE) /HPF Urine Mucus (Auto) (NEGATIVE) /HPF Urine Culture Reflexed (NO) Urine Glucose (NEGATIVE) mg/dL 03/09/18 03/10/18 03/10/18 Range/Units 18:11 05:20 05:20 WBC 7.8 (4.0-10.5) K/mm3 RBC 3.42 L (4.1-5.4) M/mm3 Hgb 10.2 L (12.0-16.0) gm/dl Hct 31.9 L (35-47) % MCV 93.3 (78-100) fl MCH 29.8 (26-32) pg MCHC 32.0 (32-36) g/dl RDW 13.4 (11.5-14.0) % Plt Count 289 (150-450) K/mm3 MPV 10.0 H (6-9.5) fl Gran % 65.2 (36.0-66.0) % Eos # (Auto) 0.23 (0-0.5) Absolute Lymphs (auto) 1.83 (1.0-4.6) Absolute Monos (auto) 0.61 (0.0-1.3) Lymphocytes % 23.6 L (24.0-44.0) % Monocytes % 7.9 (0.0-12.0) % Eosinophils % 3.0 (0.00-5.0) % Basophils % 0.3 (0.0-0.4) % Absolute Granulocytes 5.08 (1.4-6.9) Basophils # 0.02 (0-0.4) Sodium 141 (137-145) mmol/L Potassium 3.9 (3.5-5.1) mmol/L Chloride 108 H (98-107) mmol/L Carbon Dioxide 26 (22-30) mmol/L Anion Gap 10.7 (5-15) MEQ/L BUN 14 (7-17) mg/dL Creatinine 0.66 (0.52-1.04) mg/dL Estimated GFR > 60.0 ML/MIN Glucose 86 (74-106) mg/dL Uric Acid (2.6-6.0) mg/dL Calcium 8.3 L (8.4-10.2) mg/dL Total Bilirubin 0.40 (0.2-1.3) mg/dL AST 22 (14-36) U/L ALT 28 (0-35) U/L Alkaline Phosphatase 112 (38-126) U/L Serum Total Protein 5.7 L (6.3-8.2) g/dL Albumin 3.1 L (3.5-5.0) g/dL Amylase (30-110) U/L Lipase (23-300) U/L Urine Color ART (YELLOW) Urine Appearance SLIGHTLY CLOUDY (CLEAR) Urine pH 5.0 (5-6) Ur Specific [place] 1.036 (1.005-1.025) Urine Protein 100 (Negative) Urine Ketones TRACE (NEGATIVE) Urine Blood MODERATE (0-5) Jg/ul Urine Nitrite NEGATIVE (NEGATIVE) Urine Bilirubin SMALL (NEGATIVE) Urine Urobilinogen 4 (0-1) mg/dL Ur Leukocyte Esterase TRACE (NEGATIVE) Urine WBC (Auto) 6-10 (0-5) /HPF Urine RBC (Auto) 3-5 (0-2) /HPF U Epithel Cells (Auto) FEW (FEW) /HPF Urine Bacteria (Auto) RARE (NEGATIVE) /HPF U Non-Squamous Epi Cells RARE (FEW) /HPF Unidentified Crystals 2-5 (NEGATIVE) /HPF Urine Mucus (Auto) MODERATE (NEGATIVE) /HPF Urine Culture Reflexed YES (NO) Urine Glucose NEGATIVE (NEGATIVE) mg/dL Microbiology 03/09/18 18:11 Urine Culture - Preliminary Clean Catch Midstream NO GROWTH TO DATE Assessment/Plan (1) Headache Current Visit: Yes Status: Acute Qualifiers: Headache type: unspecified Headache chronicity pattern: acute headache Intractability: not intractable Qualified Code(s): R51 - Headache Assessment & Plan: seems to be multifactorial, likely some component of sleep deprivation and perhaps some sinus congestion. will treat with norco and ibuprofen, add flonase. encouraged her to sleep a few hours today, try meds and will see how she feels. no evidence of pre-eclampsia or HELLP syndrome on exam or with labs etc. Code(s): R51 - HEADACHE (2) Hypertension Current Visit: Yes Status: Acute Qualifiers: Hypertension type: unspecified Qualified Code(s): I10 - Essential (primary ) hypertension Assessment & Plan: well controlled, continue labetalol Code(s): I10 - ESSENTIAL (PRIMARY) HYPERTENSION (3) Status post delivery Current Visit: No Status: Acute Code(s): Z98.891 - HISTORY OF UTERINE SCAR FROM PREVIOUS SURGERY
[2018-03-10] MEDS: Adalat CC 30 MG TABLET PO SCH (09:58)
[2018-03-10] MEDS ORDERED: Flonase NASAL NS SCH ×2 (10:00)
[2018-03-10] MEDS ORDERED: MORPHINE SULFATE 4 MG INJ IV ONE (13:47)
[2018-03-10] MEDS ORDERED: NORCO 5/325 MG PO ONE (14:05)
[2018-03-10 16:24] VITALS: BP 110/56; PULSE 66
== END 2018-03-10 17:02 | disposition home or self-care (01) ==
LOC: ED 17:42 → MED SURG 19:33
PROVIDERS: ADMIT Family Medicine; ATTEND Family Medicine
DX: R51 Headache (principal); I10 Essential (primary) hypertension; Z98.891 History of uterine scar from previous surgery; Z98.51 Tubal ligation status; Z79.899 Other long term (current) drug therapy
CPT/HCPCS: 36000; 36415; 80053; 81001; 82150; 83690; 84550; 85025; 87086; 93005; 93268; 99285; G0378; A9270-GY

== ENCOUNTER 2018-09-20 15:37 | Emergency (ER) | payer BC ==
[2018-09-20] MEDS ORDERED: Sodium Chloride 0.9% 1000 ML 1,000 ML IV STA (16:54)
[2018-09-20] MEDS ORDERED: Sodium Chloride 0.9% 1000 ML 1,000 ML ONE (17:03)
[2018-09-20 17:10] LABS: BASOPHIL % 0.4 % (0.0-0.4); Basophil (Absolute #) 0.02 (0-0.4); Eosinophil % 1.8 % (0.00-5.0); Eosinophil (Absolute #) 0.09 (0-0.5); Granulocyte Absolute (ANC) 2.75 (1.4-6.9); Granulocytes % 56.2 % (36.0-66.0); Hematocrit 40.8 % (35-47); Hemoglobin 13.9 gm/dl (12.0-16.0); Lymphocyte (Absolute #) 1.52 (1.0-4.6); Mean Cell Volume 90.1 fl (78-100); Mean Corpuscular Hemoglobin 30.7 pg (26-32); Mean Corpuscular Hgb Concent. 34.1 g/dl (32-36); Mean Platelet Volume 9.7 fl (6-9.5); Monocyte (Absolute #) 0.52 (0.0-1.3); Monocytes % 10.6 % (0.0-12.0); Platelet Count 261 K/mm3 (150-450); Red Blood Count 4.53 M/mm3 (4.1-5.4); Red Cell Distribution Width 12.5 % (11.5-14.0); White Blood Count 4.9 K/mm3 (4.0-10.5)
[2018-09-20 17:21] LABS: ALBUMIN 4.5 g/dL (3.5-5.0); ALKALINE PHOSPHATASE 119 U/L (38-126); AMYLASE 44 U/L (30-110); ANION GAP 11.7 MEQ/L (5-15); BLOOD UREA NITROGEN 12 mg/dL (7-17); CHLORIDE 109 mmol/L (98-107); Calcium 9.1 mg/dL (8.4-10.2); Carbon Dioxide 26 mmol/L (22-30); Creatinine 1 0.53 mg/dL (0.52-1.04); Glucose 80 mg/dL (74-106); LIPASE 70 U/L (23-300); Potassium 4.1 mmol/L (3.5-5.1); SGOT/AST 29 U/L (14-36); SGPT/ALT 29 U/L (0-35); SODIUM 142 mmol/L (137-145); Total Protein 7.5 g/dL (6.3-8.2)
[2018-09-20 17:44] LABS: Appearance TURBID (CLEAR); Bacteria PACKED /HPF (NEGATIVE); Bilirubin NEGATIVE (NEGATIVE); Blood NEGATIVE Ery/ul (0-5); Epithelial Cells RARE /HPF (FEW); Glucose NEGATIVE (NEGATIVE); Ketones TRACE (NEGATIVE); Leukocyte Esterase NEGATIVE (NEGATIVE); Mucus SLIGHT /HPF (NEGATIVE); Nitrite NEGATIVE (NEGATIVE); Protein,Urine Dip 30 (Negative); RBC 0-2 /HPF (0-2); Specific Gravity 1.034 (1.005-1.025); Urobilinogen 2 mg/dL (0-1); WBC 0-2 /HPF (0-5)
--- NOTE | 2018-09-20 19:39 | ERPHSYRPT ---
- History of Present Illness Time Seen by Provider: 09/20/18 16:00 Historian: patient Exam Limitations: no limitations Patient Subjective Stated Complaint: DIARRHEA SINCE THURSDAY, HEADACHE, RIGHT FLANK PAIN. Triage Nursing Assessment: ALERT AND ORIENTED. ABLE TO AMBULATE TO ROOM. RLQ TENDER TO TOUCH. Physician History: 38 y/o white female 6 months out of a c section and breast feeding, presents with 4 day h/o diarrhea, right flank and rlq abd pain. denies n/v. no vaginal discharge. no other abd surgeries. Timing/Duration: day(s) (4) Activities at Onset: none Quality: stabbing Abdominal Pain Onset Location: RLQ, flank (right) Pain Radiation: no radiation Severity of Pain-Max: mild Severity of Pain-Current: moderate Associated Symptoms: diarrhea Previous symptoms: no prior history Allergies/Adverse Reactions: amlodipine besylate [From [facility]] Allergy (Intermediate, Verified 03/09/18 18: 16) Swelling of Feet lisinopril Allergy (Mild, Verified 03/09/18 18:16) Cough Home Medications: Pnv No.95/Ferrous Fum/Folic AC [ Vitamins Tablet] 1 tab PO DAILY [History] Hx Tetanus, Diphtheria Vaccination/Date Given: Yes Hx Influenza Vaccination/Date Given: No Hx Pneumococcal Vaccination/Date Given: No - Review of Systems Constitutional: No Symptoms Eyes: No Symptoms Ears, Nose, & Throat: No Symptoms Respiratory: No Symptoms Cardiac: No Symptoms Abdominal/Gastrointestinal: Abdominal Pain, Diarrhea Genitourinary Symptoms: No Symptoms Musculoskeletal: No Symptoms Skin: No Symptoms Neurological: No Symptoms Psychological: No Symptoms Endocrine: No Symptoms Hematologic/Lymphatic: No Symptoms Immunological/Allergic: No Symptoms All Other Systems: Reviewed and Negative - Past Medical History Pertinent Past Medical History: Yes Neurological History: No Pertinent History ENT History: No Pertinent History Cardiac History: Hypertension Respiratory History: No Pertinent History Endocrine Medical History: No Pertinent History Musculoskeletal History: No Pertinent History GI Medical History: Other History: Other Psycho-Social History: Other Female Reproductive Disorders: No Pertinent History Other Medical History: cysts on kidneys--been to kidney specialist. fatty liver - Past Surgical History Past Surgical History: Yes Neuro Surgical History: No Pertinent History Cardiac: No Pertinent History Respiratory: No Pertinent History Gastrointestinal: No Pertinent History Genitourinary: No Pertinent History Musculoskeletal: No Pertinent History Female Surgical History: Dilation & Curettage, Section, Tubal Ligation Other Surgical History: d/c - Social History Smoking Status: Current every day smoker How long have you smoked: 10 years Exposure to second hand smoke: No Alcohol Use: Socially Drug Use: none Patient Lives Alone: No Significant Family History: heart disease, hypertension - Female History Hx Last Menstrual Period: 09/06/18 Hx Now: No - Nursing Vital Signs Nursing Vital Signs: Initial Vital Signs Temperature 98 F 09/20/18 15:38 Pulse Rate 74 09/20/18 15:38 Respiratory Rate 18 09/20/18 15:38 Blood Pressure 141/86 09/20/18 15:38 O2 Sat by Pulse Oximetry 94 L 09/20/18 15:38 Pain Scale Pain Intensity 5 - Physical Exam General Appearance: mild distress, alert, anxiety Eye Exam: PERRL/EOMI, eyes nml inspection Ears, Nose, Throat Exam: normal ENT inspection, moist mucous membranes Neck Exam: normal inspection, non-tender, supple, full range of motion Respiratory Exam: normal breath sounds, lungs clear, airway intact, No chest tenderness, No respiratory distress Cardiovascular Exam: regular rate/rhythm, normal heart sounds, normal peripheral pulses Gastrointestinal/Abdomen Exam: soft, normal bowel sounds, tenderness (rlq), No guarding, No rebound Pelvic Exam: not done Rectal Exam: not done Back Exam: normal inspection, normal range of motion, CVA tenderness (right), No vertebral tenderness Extremity Exam: normal inspection, normal range of motion, pelvis stable Neurologic Exam: alert, oriented x 3, cooperative, care trainer II-XII nml as tested, normal mood/affect, nml cerebellar function, nml station & gait Skin Exam: normal color, warm, dry Lymphatic Exam: No adenopathy SpO2 Interpretation: normal SpO2: 99 O2 Delivery: Room Air - Course Nursing assessment & vital signs reviewed: Yes Ordered Tests: Active Orders 24 hr Category Date Time Status IV Insertion STAT Care 09/20/18 16:54 Active ABDOMEN AND PELVIS W/0 CONTRAS [CT] Stat Exams 09/20/18 18:34 Taken AMYLASE Stat Lab 09/20/18 17:00 Completed CBC W DIFF Stat Lab 09/20/18 17:00 Completed CMP Stat Lab 09/20/18 17:00 Completed CULTURE,URINE Stat Lab 09/20/18 17:35 Received LIPASE Stat Lab 09/20/18 17:00 Completed Lactic Acid Stat Lab 09/20/18 17:12 Completed UA W/RFX UR CULTURE Stat Lab 09/20/18 17:35 Completed Medication Summary Discontinued Medications Generic Name Dose Route Start Last Admin Trade Name Teresita PRN Reason Stop Dose Admin Sodium Chloride 1,000 mls @ 999 mls/hr 09/20/18 16:54 09/20/18 18:10 Sodium Chloride 0.9% 1000 Ml IV 09/20/18 17:54 Infused .Q1H1M STA Infusion Sodium Chloride Confirm 09/20/18 17:03 Sodium Chloride 0.9% 1000 Ml Administered 09/20/18 17:04 Dose 1,000 mls @ ud .ROUTE .STK-MED ONE Lab/Rad Data: Laboratory Result Diagrams 09/20/18 17:00 09/20/18 17:00 Laboratory Results 09/20/18 09/20/18 09/20/18 Range/Units 17:35 17:12 17:00 WBC (4.0-10.5) K/mm3 RBC (4.1-5.4) M/mm3 Hgb (12.0-16.0) gm/dl Hct (35-47) % MCV (78-100) fl MCH (26-32) pg MCHC (32-36) g/dl RDW (11.5-14.0) % Plt Count (150-450) K/mm3 MPV (6-9.5) fl Gran % (36.0-66.0) % Eos # (Auto) (0-0.5) Absolute Lymphs (auto) (1.0-4.6) Absolute Monos (auto) (0.0-1.3) Lymphocytes % (24.0-44.0) % Monocytes % (0.0-12.0) % Eosinophils % (0.00-5.0) % Basophils % (0.0-0.4) % Absolute Granulocytes (1.4-6.9) Basophils # (0-0.4) Sodium 142 (137-145) mmol/L Potassium 4.1 (3.5-5.1) mmol/L Chloride 109 H (98-107) mmol/L Carbon Dioxide 26 (22-30) mmol/L Anion Gap 11.7 (5-15) MEQ/L BUN 12 (7-17) mg/dL Creatinine 0.53 (0.52-1.04) mg/dL Estimated GFR > 60.0 ML/MIN Glucose 80 (74-106) mg/dL Lactic Acid 1.0 (0.4-2.0) Calcium 9.1 (8.4-10.2) mg/dL Total Bilirubin 0.30 (0.2-1.3) mg/dL AST 29 (14-36) U/L ALT 29 (0-35) U/L Alkaline Phosphatase 119 (38-126) U/L Serum Total Protein 7.5 (6.3-8.2) g/dL Albumin 4.5 (3.5-5.0) g/dL Amylase 44 (30-110) U/L Lipase 70 (23-300) U/L Urine Color YELLOW (YELLOW) Urine Appearance TURBID (CLEAR) Urine pH 5.0 (5-6) Ur Specific [place] 1.034 (1.005-1.025) Urine Protein 30 (Negative) Urine Ketones TRACE (NEGATIVE) Urine Blood NEGATIVE (0-5) Jg/ul Urine Nitrite NEGATIVE (NEGATIVE) Urine Bilirubin NEGATIVE (NEGATIVE) Urine Urobilinogen 2 (0-1) mg/dL Ur Leukocyte Esterase NEGATIVE (NEGATIVE) Urine WBC (Auto) 0-2 (0-5) /HPF Urine RBC (Auto) 0-2 (0-2) /HPF U Epithel Cells (Auto) RARE (FEW) /HPF Urine Bacteria (Auto) PACKED (NEGATIVE) /HPF Urine Mucus (Auto) SLIGHT (NEGATIVE) /HPF Urine Culture Reflexed YES (NO) Urine Glucose NEGATIVE (NEGATIVE) mg/dL 09/20/18 Range/Units 17:00 WBC 4.9 (4.0-10.5) K/mm3 RBC 4.53 (4.1-5.4) M/mm3 Hgb 13.9 (12.0-16.0) gm/dl Hct 40.8 (35-47) % MCV 90.1 (78-100) fl MCH 30.7 (26-32) pg MCHC 34.1 (32-36) g/dl RDW 12.5 (11.5-14.0) % Plt Count 261 (150-450) K/mm3 MPV 9.7 H (6-9.5) fl Gran % 56.2 (36.0-66.0) % Eos # (Auto) 0.09 (0-0.5) Absolute Lymphs (auto) 1.52 (1.0-4.6) Absolute Monos (auto) 0.52 (0.0-1.3) Lymphocytes % 31.0 (24.0-44.0) % Monocytes % 10.6 (0.0-12.0) % Eosinophils % 1.8 (0.00-5.0) % Basophils % 0.4 (0.0-0.4) % Absolute Granulocytes 2.75 (1.4-6.9) Basophils # 0.02 (0-0.4) Sodium (137-145) mmol/L Potassium (3.5-5.1) mmol/L Chloride (98-107) mmol/L Carbon Dioxide (22-30) mmol/L Anion Gap (5-15) MEQ/L BUN (7-17) mg/dL Creatinine (0.52-1.04) mg/dL Estimated GFR ML/MIN Glucose (74-106) mg/dL Lactic Acid (0.4-2.0) Calcium (8.4-10.2) mg/dL Total Bilirubin (0.2-1.3) mg/dL AST (14-36) U/L ALT (0-35) U/L Alkaline Phosphatase (38-126) U/L Serum Total Protein (6.3-8.2) g/dL Albumin (3.5-5.0) g/dL Amylase (30-110) U/L Lipase (23-300) U/L Urine Color (YELLOW) Urine Appearance (CLEAR) Urine pH (5-6) Ur Specific [place] (1.005-1.025) Urine Protein (Negative) Urine Ketones (NEGATIVE) Urine Blood (0-5) Jg/ul Urine Nitrite (NEGATIVE) Urine Bilirubin (NEGATIVE) Urine Urobilinogen (0-1) mg/dL Ur Leukocyte Esterase (NEGATIVE) Urine WBC (Auto) (0-5) /HPF Urine RBC (Auto) (0-2) /HPF U Epithel Cells (Auto) (FEW) /HPF Urine Bacteria (Auto) (NEGATIVE) /HPF Urine Mucus (Auto) (NEGATIVE) /HPF Urine Culture Reflexed (NO) Urine Glucose (NEGATIVE) mg/dL - Progress Progress: improved, pain not gone completely, re-examined Progress Note: 09/20/18 20:40 pt refusing pain meds ct abd/pelvis-central abd mesenteric lymph nodes with mild mesenteric stranding( viral adenitis vs early lymphoma). i discussed findings with pt. Counseled pt/family regarding: lab results, diagnosis, need for follow-up, rad results - Departure Departure Disposition: Home Clinical Impression: Abdominal pain, Mesenteric lymphadenopathy, Diarrhea Condition: Stable Critical Care Time: No Referrals: JOSEPH KING MD [Primary Care Provider] - Additional Instructions: drink plenty of fluids. follow up with primary doctor tomorrow to further investigate cat scan findings.
[2018-09-20 20:46] VITALS: BP 116/53; PULSE 56; O2SAT 97
--- NOTE | 2018-09-21 17:17 | XRAY ---
Exam: CT of the abdomen and pelvis without IV contrast from 09/20/2018. CTDI: 22.72 Comparison: None. Indication: 38-year-old female with right lower quadrant abdominal pain and diarrhea 5 days, rule out appendicitis or stone. The patient has a history of prior tubal ligation and 2 sections. Technique: Non-IV contrast axial images were obtained through the abdomen and pelvis. Reconstructed coronal and sagittal images were created and reviewed. Findings: The lung bases are clear, except for small incidental calcified granuloma within the right posterior lung sulcus. The heart size is normal. Assessment of the solid organs is limited without the use of IV contrast. The liver appears of unremarkable size and attenuation. The gallbladder is partially distended and reveals no dense calcifications within it. No intrahepatic biliary duct distention is seen. The spleen is elongated measuring 15.5 cm in greatest length on coronal image #104. This is mildly enlarged. I see no focal splenic mass. The pancreas and adrenal glands appear unremarkable. The kidneys are normal size and reveal no calculi or hydronephrosis. No gross renal mass is seen. The ureters appear of unremarkable diameter and reveal no ureterolith. I see no free intraperitoneal air. No bowel containing ventral hernia is seen. There is minimal protrusion of intraperitoneal fat of the subcutaneous fat at the level of the umbilicus. There is abundant intraperitoneal fat. I see no evidence of abdominal aortic aneurysm. No abnormal retroperitoneal lymphadenopathy is seen. However, there are some scattered mildly prominent mesenteric lymph nodes within the mid abdomen and right lower quadrant. This can be seen with viral adenitis. The appendix is seen within the right lower quadrant and reveals no evidence of appendicitis. Some fluid-filled small bowel is seen as well as some fluid within the right hemicolon. This is consistent with a diarrheal illness. I see no evidence of bowel obstruction or significant bowel wall thickening. I do not see significant diverticulosis or evidence of diverticulitis. The uterus is anteflexed and elongated. Both ovaries are identified and appear unremarkable. No enlarged pelvic lymph nodes are seen. There is no free intraperitoneal fluid. The urinary bladder is minimally distended. The pelvic sidewalls appear unremarkable. The skeleton reveals no acute fracture or aggressive bone lesion. Impression: 1. I see no evidence of renal/ureteral stones, hydronephrosis, or other evidence of obstructive uropathy. 2. There is no evidence of appendicitis. 3. Mild splenomegaly which measures 15.5 cm in greatest craniocaudal dimension. No focal splenic mass is seen. 4. Fluid-filled small bowel and right hemicolon are seen consistent with patient's diarrheal illness. 5. I note some scattered mildly prominent mesenteric lymph nodes within the central abdomen and right lower quadrant. This may be due to a viral adenitis. Other etiologies are not completely excluded. 6. I see no evidence of significant diverticulosis or diverticulitis. No other acute process is seen within the abdomen or pelvis.
== END 2018-09-20 20:51 | disposition home or self-care (01) ==
LOC: ED 15:37
DX: R10.9 Unspecified abdominal pain (principal); R59.1 Generalized enlarged lymph nodes; R19.7 Diarrhea, unspecified
CPT/HCPCS: 36000; 36415; 74176; 80053; 81001; 82150; 83605; 83690; 85025; 87086; 96360; 99284

== ENCOUNTER 2018-10-04 21:43 | Emergency (ER) | payer BC | END 2018-10-05 00:53 | disposition home or self-care (01) | LOC: ED 10-05 00:53 ==

== ENCOUNTER 2019-09-24 08:50 | Emergency (ER) | payer OTHER ==
[2019-09-24 09:08] VITALS: BP 135/85; PULSE 78; O2SAT 98
[2019-09-24] MEDS ORDERED: Adacel Vial IM ONE ×2 (09:20→09:23)
[2019-09-24] MEDS ORDERED: TORAdol 30 mg Injection IM ONE (09:21)
[2019-09-24] MEDS ORDERED: TORAdol 30 mg Injection ONE (09:22)
--- NOTE | 2019-09-24 09:26 | ERPHSYRPT ---
- History of Present Illness Time Seen by Provider: 09/24/19 09:11 Source: patient Exam Limitations: no limitations Patient Subjective Stated Complaint: Laceration Triage Nursing Assessment: Patient ambulated back to ED and transferred self to bed. Patient A+O X 3. Patient's skin pink, warm and dry. Patient states she was peeling a zuchini with a kierra and sliced her right hand, thumb last night. Patient has small skin flap noted to right hand, thumb. Slgiht bleeding noted. Patient complains of constant throbbing pain 11/02. Physician History: 39 years old female presented in the ER with chief complaint of right thumb laceration which he accidentally got while peeling zucchini's last night. There was a small skin flap which is intact distally. There was bleeding initially but stopped after applying pressure. Since then she is having constant moderate intensity sharp throbbing pain which is more with palpation and movement. No injury anywhere else. Unsure about tetanus status. Occurred: yesterday Method of Injury: incised Quality: sharpness Severity of Pain-Max: moderate Severity of Pain-Current: moderate Extremities Pain Location: thumb: right Modifying Factors: Improves With: movement Associated Symptoms: none Allergies/Adverse Reactions: amlodipine besylate [From [facility]] Allergy (Intermediate, Verified 09/24/19 08:55) Swelling of Feet lisinopril Allergy (Mild, Verified 09/24/19 08:55) Cough Home Medications: Valsartan/Hydrochlorothiazide [Valsartan-Hctz 80-12.5 mg Tab] 1 tab PO DAILY 09/24/19 [History] Hx Tetanus, Diphtheria Vaccination/Date Given: No Hx Influenza Vaccination/Date Given: No Hx Pneumococcal Vaccination/Date Given: No Immunizations Up to Date: Yes Travel Risk - International Travel Have you traveled outside of the country in past 3 weeks: No - Coronavirus Screening Are you exhibiting any of the following symptoms?: No Close contact with a COVID-19 positive Pt in past 14-21 Days: No - Review of Systems Constitutional: No Symptoms Eyes: No Symptoms Ears, Nose, & Throat: No Symptoms Respiratory: No Symptoms Cardiac: No Symptoms Abdominal/Gastrointestinal: No Symptoms Genitourinary Symptoms: No Symptoms Musculoskeletal: No Symptoms Skin: Skin Lesions Neurological: No Symptoms Psychological: No Symptoms Endocrine: No Symptoms Hematologic/Lymphatic: No Symptoms - Past Medical History Pertinent Past Medical History: Yes Neurological History: No Pertinent History ENT History: No Pertinent History Cardiac History: Hypertension Respiratory History: No Pertinent History Endocrine Medical History: No Pertinent History Musculoskeletal History: No Pertinent History GI Medical History: Other History: Other Psycho-Social History: Other Female Reproductive Disorders: No Pertinent History Other Medical History: cysts on kidneys--been to kidney specialist. fatty liver - Past Surgical History Past Surgical History: Yes Neuro Surgical History: No Pertinent History Cardiac: No Pertinent History Respiratory: No Pertinent History Gastrointestinal: No Pertinent History Genitourinary: No Pertinent History Musculoskeletal: No Pertinent History Female Surgical History: Dilation & Curettage, Section, Tubal Ligation Other Surgical History: d/c, X 2 - Social History Smoking Status: Current every day smoker How long have you smoked: 10 years Exposure to second hand smoke: No Alcohol Use: Socially Drug Use: none Patient Lives Alone: No Significant Family History: heart disease, hypertension - Female History Hx Now: No - Nursing Vital Signs Nursing Vital Signs: Initial Vital Signs Temperature 98.3 F 09/24/19 08:58 Pulse Rate 78 09/24/19 08:58 Respiratory Rate 18 09/24/19 08:58 Blood Pressure 135/85 09/24/19 08:58 O2 Sat by Pulse Oximetry 98 09/24/19 08:58 Pain Scale Pain Intensity 5 - Physical Exam General Appearance: no apparent distress Eyes, Ears, Nose, Throat Exam: normal ENT inspection Neck Exam: normal inspection, supple, full range of motion Cardiovascular/Respiratory Exam: normal breath sounds, regular rate/rhythm Hand Exam: soft tissue tenderness (Right thumb lateral aspect small skin tear. No active bleeding. Erythema or redness around. Tender to touch.) Neuro/Tendon Exam: normal sensation, normal motor functions, normal tendon functions Mental Status Exam: alert, oriented x 3, cooperative Skin Exam: normal color SpO2 Interpretation: normal SpO2: 98 O2 Delivery: Room Air - Course Nursing assessment & vital signs reviewed: Yes Ordered Tests: Medication Summary Discontinued Medications Generic Name Dose Route Start Last Admin Trade Name Freq PRN Reason Stop Dose Admin Diphtheria/Tetanus/Acell Pertussis 0.5 ml 09/24/19 09:20 09/24/19 09:23 Adacel Vial IM 09/24/19 09:21 0.5 ml .ONCE ONE Administration Diphtheria/Tetanus/Acell Pertussis Confirm 09/24/19 09:23 Adacel Vial Administered 09/24/19 09:24 Dose 0.5 ml IM .STK-MED ONE Ketorolac Tromethamine 30 mg 09/24/19 09:21 09/24/19 09:24 Toradol 30 Mg Injection IM 09/24/19 09:22 30 mg STAT ONE Administration Ketorolac Tromethamine Confirm 09/24/19 09:22 Toradol 30 Mg Injection Administered 09/24/19 09:23 Dose 30 mg .ROUTE .STK-MED ONE - Progress Progress: unchanged Progress Note: 09/24/19 15:14 Tetanus is updated. Wound is clean. No signs of infection. Given Toradol. Recommended taking Tylenol ibuprofen as needed. Do not think she needs any antibiotic. Stable for discharge with outpatient follow-up. Counseled pt/family regarding: diagnosis, need for follow-up - Departure Departure Disposition: Home Clinical Impression: Laceration of thumb Qualifiers: Encounter type: initial encounter Damage to nail status: without damage Foreign body presence: without foreign body Laterality: right Qualified Code(s): S61.011A - Laceration without foreign body of right thumb without damage to nail, initial encounter Condition: Good Critical Care Time: No Referrals: JOSEPH KING MD [Primary Care Provider] - Instructions: Wound Care (DC) Additional Instructions: Keep it clean. Take Tylenol/ibuprofen as needed. Follow-up with primary care for reevaluation. Return to ER for increasing pain/swelling/redness/discharge etc.
== END 2019-09-24 09:50 | disposition home or self-care (01) ==
LOC: ED 08:50
DX: S61.011A Laceration without foreign body of right thumb without damage to nail, initial encounter (principal); I10 Essential (primary) hypertension; K76.0 Fatty (change of) liver, not elsewhere classified; Z72.0 Tobacco use; W26.9XXA Contact with unspecified sharp object(s), initial encounter; Y93.G9 Activity, other involving cooking and grilling; Y92.9 Unspecified place or not applicable; Y99.9 Unspecified external cause status
CPT/HCPCS: 90471; 90715; 96372; 99283; J1885

== ENCOUNTER 2021-06-04 06:32 | Day surgery (SDC) | payer BC ==
[2021-06-04] MEDS ORDERED: Lactated Ringers 1,000 ML IV SCH (07:00)
[2021-06-04] MEDS ORDERED: CEFAZOLIN 2 GM-D5W BAG** 2 GM/50 ML ML IV ONE ×2 (07:11→08:00)
[2021-06-04] MEDS ORDERED: Lactated Ringers 1,000 ML IV ONE (07:11)
[2021-06-04] MEDS ORDERED: ASTRINGYN 8 GM TP ONE (07:21)
[2021-06-04] MEDS ORDERED: XYLOCAINE 1%/Epi 1:100000 MDV 20 ML ONE (07:21)
[2021-06-04] MEDS ORDERED: Zofran 4 MG/2 ML VIAL ONE (08:21)
[2021-06-04] MEDS ORDERED: DIPRIVAN 200 MG/20 ML IV ONE (08:21)
[2021-06-04] MEDS ORDERED: Xylocaine-Mpf 2% 5 Ml Vial ONE (08:21)
[2021-06-04] MEDS ORDERED: Versed 2 MG/2 ML Injection ONE (08:21)
[2021-06-04] MEDS ORDERED: SUBLIMAZE 100 MCG/2 ML ONE (08:21)
[2021-06-04] MEDS ORDERED: Decadron 4 MG INJ ONE (08:21)
[2021-06-04] MEDS ORDERED: ROBINUL ONE (08:50)
[2021-06-04 10:06] VITALS: BP 117/62; PULSE 80; O2SAT 95
--- NOTE | 2021-06-05 09:14 | OP ---
SURGERY DATE/TIME: 06/04/2021 0825 PREOPERATIVE DIAGNOSIS: Abnormal uterine bleeding. POSTOPERATIVE DIAGNOSIS: Abnormal uterine bleeding. PROCEDURE: Hysteroscopy D&C. SURGEON: Young Roberson D.O. TOOL AND DIE INSPECTOR: Georgina Hoover emissions testing and repair technician. ANESTHESIA: General. ESTIMATED BLOOD LOSS: Minimal. COMPLICATIONS: None. INDICATIONS: The risks, benefits, indications and alternatives of the procedure were reviewed with the patient prior to procedure. The patient understood the risk of infection, bleeding, bowel injury, bladder injury, ureteral injury, uterine perforation, pelvic infection, thromboembolic disorder associated with the surgery and desires to have this surgery as a possible means to alleviate her current medical condition. DESCRIPTION OF PROCEDURE AND FINDINGS: At this point the patient is taken to the operating room given general sedation, placed in dorsal lithotomy position, prepped and draped in the usual sterile fashion. A weighted speculum is then placed in the patient's vagina and the anterior lip of the cervix is grasped with a single tooth tenaculum. Endocervical dilators advanced through the endocervical canal as a means to dilate the cervix and the uterus sounded to approximately 9 cm. From this point, a 5 mm hysteroscope was then placed into through the endocervical canal where visualization revealed no gross abnormalities. From this point the hysteroscope is then removed and a curette was placed into the fundus of the uterus and curettage was performed in all quadrants of the uterus retrieving a mild to moderate tissue. From this point hemostasis was obtained. All instruments were then subsequently removed from the patient's vaginal region. All instruments were then subsequently removed from the patient's vaginal region. The patient is then taken out of the dorsal lithotomy position and was then taken to the recovery room in stable condition. All instruments and laps were accounted for x2.
== END 2021-06-04 10:15 | disposition home or self-care (01) ==
LOC: SDC 06:32
PROVIDERS: ATTEND Obstetrics & Gynecology
DX: N93.9 Abnormal uterine and vaginal bleeding, unspecified (principal)
CPT/HCPCS: 84703; J0690; J1100; J2250; J2405; J2704; J3010; A9270-GY

== ENCOUNTER 2021-07-26 12:18 | Emergency (ER) | payer BC ==
[2021-07-26 12:34] VITALS: O2SAT 98
[2021-07-26] MEDS ORDERED: Zofran 4 MG/2 ML VIAL IV ONE (12:48)
[2021-07-26] MEDS ORDERED: TORAdol 30 mg Injection IV ONE (12:48)
[2021-07-26] MEDS ORDERED: Sodium Chloride 0.9% 1000 ML 1,000 ML IV STA (12:48)
[2021-07-26] MEDS ORDERED: Zofran 4 MG/2 ML VIAL ONE (12:51)
[2021-07-26] MEDS ORDERED: TORAdol 30 mg Injection ONE (12:51)
[2021-07-26] MEDS ORDERED: Sodium Chloride 0.9% 1000 ML 1,000 ML ONE (12:51)
[2021-07-26 12:59] LABS: Absolute Neutrophil Ct (ANC) 7.23 x10^3/uL (1.4-6.9); Basophil (Absolute #) 0.05 x10^3/uL (0-0.4); Eosinophil % 1.3 % (0.00-5.0); Eosinophil (Absolute #) 0.13 x10^3/uL (0-0.5); Hematocrit 43.6 % (35-47); Hemoglobin 14.4 g/dL (12.0-16.0); Lymphocyte (Absolute #) 1.85 x10^3/uL (1.0-4.6); Lymphocytes % 18.5 % (24.0-44.0); Mean Cell Volume 88.8 fL (78-100); Mean Corpuscular Hemoglobin 29.3 pg (26-32); Monocyte (Absolute #) 0.68 x10^3/uL (0.0-1.3); Monocytes % 6.8 % (0.0-12.0); Neutrophil % 72.5 % (36.0-66.0); Platelet Count 329 x10^3/uL (150-450); Red Blood Count 4.91 x10^6/uL (4.1-5.4); Red Cell Distribution Width 13.2 % (11.5-14.0)
[2021-07-26 13:09] LABS: Appearance CLEAR (CLEAR); Bilirubin NEGATIVE (NEGATIVE); Epithelial Cells RARE /HPF (FEW); Glucose NEGATIVE (NEGATIVE); Ketones NEGATIVE (NEGATIVE); Mucus MODERATE /HPF (NEGATIVE); Ph 5.5 (5-6); Protein,Urine Dip 30 (Negative); RBC 0-2 /HPF (0-2); RBC MODERATE Ery/ul (0-5); Specific Gravity >=1.030 (1.005-1.025); WBC 0-2 /HPF (0-5)
[2021-07-26 13:10] LABS: Dipstick done @ ? MAIN LAB; Nitrite NEGATIVE (NEGATIVE); Urobilinogen 0.2 mg/dL (0-1)
[2021-07-26 13:14] LABS: ALBUMIN 4.2 g/dL (3.5-5.0); ALKALINE PHOSPHATASE 88 U/L (38-126); ANION GAP 13.4 MEQ/L (5-15); BLOOD UREA NITROGEN 9 mg/dL (7-17); CHLORIDE 104 mmol/L (98-107); Calcium 9.2 mg/dL (8.4-10.2); Carbon Dioxide 25 mmol/L (22-30); Creatinine 1 0.58 mg/dL (0.52-1.04); EST GLOMERULAR FILTRATION RATE > 60.0 ML/MIN; Glucose 88 mg/dL (74-106); LIPASE 71 U/L (23-300); Potassium 4.2 mmol/L (3.5-5.1); SGOT/AST 22 U/L (14-36); SGPT/ALT 25 U/L (0-35); SODIUM 138 mmol/L (137-145); Total Protein 6.9 g/dL (6.3-8.2)
[2021-07-26 13:15] LABS: Urine Cultured Indicated? YES
--- NOTE | 2021-07-26 13:49 | XRAY ---
Indication: Right lower quadrant pain one day. History ovarian cyst. Multiple contiguous axial images obtained through the abdomen and pelvis without contrast. Comparison: May 21, 2021. Lung bases remain clear again with incidental tiny right posterior gutter calcified granuloma. Heart not enlarged. Stable small hiatal hernia. Noncontrasted stomach and bowel loops nonobstructed with again normal appendix. New 4.2 cm right ovary cyst. Previous tiny left renal cysts not seen on today's noncontrast exam. No free fluid/air. Gallbladder contracted without gallstones. Spleen remains enlarged measuring 12.9 cm. Remaining liver, gallbladder, pancreas, spleen, adrenal glands, kidneys, ureters, bladder, uterus, and aorta are unremarkable for noncontrast exam. Osseous structures are intact again with minimal degenerative changes throughout the spine and stable benign-appearing L4/L5 sclerotic lesions. Impression: 1. New 4.2 cm right ovary cyst. 2. Again splenomegaly, small hiatal hernia, right lung base calcified granuloma, and chronic bony findings. 3. Remaining CT abdomen/pelvis without contrast exam is negative.
[2021-07-26] MEDS ORDERED: MORPHINE SULFATE 4 MG INJ ONE (14:12)
--- NOTE | 2021-07-26 14:55 | ERPHSYRPT ---
- History of Present Illness Time Seen by Provider: 07/26/21 12:34 Historian: patient Exam Limitations: no limitations Patient Subjective Stated Complaint: Abdominal pain Triage Nursing Assessment: Patient ambulated back to ED and transferred self to bed. Patient A+O X 3. Patient's skin pink, warm and dry. Patient complains of right lower abdominal pain 9/10 constant sharp pain that came on all of a sudden. Patient complains of nausea. Patient states the pain goes into her right lower leg. Abdomen soft and round with BS X 4. Physician History: 41-year-old female presented to the ER with chief complaint of right lower quadrant/pelvic pain sudden onset this morning, constant, moderate to severe sharp, radiating to right upper thigh, aggravated with movements palpation and feeling better being in a certain position. Reports having similar symptoms couple of months ago and has DNC done. Does have history of ovarian cysts. Reports having nausea without vomiting. No urinary complaints. Timing/Duration: today, constant, gradual onset, worse Activities at Onset: rest Quality: sharpness Abdominal Pain Onset Location: RLQ Pain Radiation: other Severity of Pain-Max: moderate Severity of Pain-Current: moderate Modifying Factors: Improves With: position. Worsens With: movement, palpation Associated Symptoms: nausea Previous symptoms: same symptoms as today Allergies/Adverse Reactions: amlodipine besylate [From Norvasc] Allergy (Intermediate, Verified 07/26/21 12:28) Swelling of Feet lisinopril Allergy (Mild, Verified 07/26/21 12:28) Cough labetalol Adverse Reaction (Intermediate, Verified 07/26/21 12:28) Irregular Heart Beat nifedipine Adverse Reaction (Mild, Verified 07/26/21 12:28) Skin Irritation Home Medications: Loratadine 10 mg [Claritin 10 mg] 10 mg PO DAILY 05/28/21 [History] Sertraline HCl 50 mg [Zoloft 50 mg Tablet] 1 tab PO DAILY 07/26/21 [History] Valsartan 1 tab PO DAILY 07/26/21 [History] Hx Tetanus, Diphtheria Vaccination/Date Given: No Hx Influenza Vaccination/Date Given: No Hx Pneumococcal Vaccination/Date Given: No Immunizations Up to Date: Yes Travel Risk - International Travel Have you traveled outside of the country in past 3 weeks: No - Coronavirus Screening Are you exhibiting any of the following symptoms?: No Close contact with a COVID-19 positive Pt in past 14-21 Days: No - Vaccine Status Have you recieved a Covid-19 vaccination: No - Review of Systems Constitutional: No Symptoms Eyes: No Symptoms Ears, Nose, & Throat: No Symptoms Respiratory: No Symptoms Cardiac: No Symptoms Abdominal/Gastrointestinal: Abdominal Pain, Nausea Genitourinary Symptoms: No Symptoms Musculoskeletal: No Symptoms Skin: No Symptoms Neurological: No Symptoms Psychological: No Symptoms Endocrine: No Symptoms Hematologic/Lymphatic: No Symptoms Immunological/Allergic: No Symptoms - Past Medical History Pertinent Past Medical History: Yes Neurological History: No Pertinent History ENT History: No Pertinent History Cardiac History: Hypertension Respiratory History: No Pertinent History Endocrine Medical History: No Pertinent History Musculoskeletal History: No Pertinent History GI Medical History: Other History: Other Psycho-Social History: Anxiety Female Reproductive Disorders: No Pertinent History Other Medical History: cysts on kidneys--been to kidney specialist. fatty liver - Past Surgical History Past Surgical History: Yes Neuro Surgical History: No Pertinent History Cardiac: No Pertinent History Respiratory: No Pertinent History Gastrointestinal: No Pertinent History Genitourinary: No Pertinent History Musculoskeletal: No Pertinent History Female Surgical History: Dilation & Curettage, Section, Tubal Ligation Other Surgical History: d/c, X 2, EGD - Social History Smoking Status: Current every day smoker How long have you smoked: 10 years Exposure to second hand smoke: No Alcohol Use: Socially Drug Use: none Patient Lives Alone: No Significant Family History: heart disease, hypertension - Female History Hx Last Menstrual Period: June 18 Hx Now: No - Nursing Vital Signs Nursing Vital Signs: Initial Vital Signs Temperature 98.3 F 07/26/21 12:29 Pulse Rate 62 07/26/21 12:29 Respiratory Rate 18 07/26/21 12:29 Blood Pressure 128/90 07/26/21 12:29 O2 Sat by Pulse Oximetry 98 07/26/21 12:29 Pain Scale Pain Intensity 5 - Physical Exam General Appearance: no apparent distress, alert Eye Exam: PERRL/EOMI Ears, Nose, Throat Exam: normal ENT inspection Neck Exam: normal inspection, full range of motion Respiratory Exam: normal breath sounds, lungs clear Cardiovascular Exam: regular rate/rhythm, normal heart sounds Gastrointestinal/Abdomen Exam: soft, normal bowel sounds, tenderness (Right lower quadrant with guarding but no rebound tenderness) Back Exam: normal inspection, normal range of motion Extremity Exam: normal inspection, normal range of motion Neurologic Exam: alert, oriented x 3, cooperative Skin Exam: normal color SpO2 Interpretation: normal SpO2: 98 O2 Delivery: Room Air Ordered Tests: Active Orders 24 hr Category Date Time Status IV Insertion STAT Care 07/26/21 12:48 Active NPO (ED) STAT Care 07/26/21 12:48 Active ABDOMEN AND PELVIS W/0 CONTRAS [CT] Stat Exams 07/26/21 13:27 Completed PELVIS TRANS VAGINAL [US] Stat Exams 07/26/21 14:38 Completed CBC W DIFF Stat Lab 07/26/21 12:58 Completed CMP Stat Lab 07/26/21 12:58 Completed CULTURE,URINE Stat Lab 07/26/21 12:58 Received HCG,QUALITATIVE URINE Stat Lab 07/26/21 12:58 Completed LIPASE Stat Lab 07/26/21 12:58 Completed UA W/RFX CULTURE Stat Lab 07/26/21 12:58 Completed Medication Summary Discontinued Medications Generic Name Dose Route Start Last Admin Trade Name Teresita PRN Reason Stop Dose Admin Sodium Chloride 1,000 mls @ 999 mls/hr 07/26/21 12:48 07/26/21 14:02 Sodium Chloride 0.9% 1000 Ml IV 07/26/21 13:48 Infused .Q1H1M STA Infusion Sodium Chloride Confirm 07/26/21 12:51 Sodium Chloride 0.9% 1000 Ml Administered 07/26/21 12:52 Dose 1,000 mls @ ud .ROUTE .STK-MED ONE Ketorolac Tromethamine 30 mg 07/26/21 12:48 07/26/21 12:53 Ketorolac Tromethamine 30 Mg/Ml Inj IV 07/26/21 12:49 30 mg STAT ONE Administration Ketorolac Tromethamine Confirm 07/26/21 12:51 Ketorolac Tromethamine 30 Mg/Ml Inj Administered 07/26/21 12:52 Dose 30 mg .ROUTE .STK-MED ONE Morphine Sulfate Confirm 07/26/21 14:12 Morphine Sulfate 4 Mg/Ml Injection Administered 07/26/21 14:13 Dose 4 mg .ROUTE .STK-MED ONE Morphine Sulfate 4 mg 07/26/21 14:57 07/26/21 14:14 Morphine Sulfate 4 Mg/Ml Injection IV 06/03/22 14:58 4 mg STAT ONE Administration Ondansetron HCl 4 mg 07/26/21 12:48 07/26/21 12:53 Ondansetron Hcl 4 Mg/2 Ml Vial IV 07/26/21 12:49 4 mg STAT ONE Administration Ondansetron HCl Confirm 07/26/21 12:51 Ondansetron Hcl 4 Mg/2 Ml Vial Administered 07/26/21 12:52 Dose 4 mg .ROUTE .STK-MED ONE Lab/Rad Data: Laboratory Result Diagrams 07/26/21 12:58 07/26/21 12:58 Laboratory Results 07/26/21 07/26/21 07/26/21 Range/Units 12:58 12:58 12:58 WBC 10.0 (4.0-10.5) x10^3/uL RBC 4.91 (4.1-5.4) x10^6/uL Hgb 14.4 (12.0-16.0) g/dL Hct 43.6 (35-47) % MCV 88.8 (78-100) fL MCH 29.3 (26-32) pg MCHC 33.0 (32-36) g/dL RDW 13.2 (11.5-14.0) % Plt Count 329 (150-450) x10^3/uL MPV 10.0 (7.5-11.0) fL Gran % 72.5 H (36.0-66.0) % Immature Gran % (Auto) 0.4 (0.00-0.4) % Nucleat RBC Rel Count 0.0 (0.00-0.1) % Eos # (Auto) 0.13 (0-0.5) x10^3/uL Immature Gran # (Auto) 0.04 H (0.00-0.03) x10^3u/L Absolute Lymphs (auto) 1.85 (1.0-4.6) x10^3/uL Absolute Monos (auto) 0.68 (0.0-1.3) x10^3/uL Absolute Nucleated RBC 0.00 (0.00-0.01) x10^3u/L Lymphocytes % 18.5 L (24.0-44.0) % Monocytes % 6.8 (0.0-12.0) % Eosinophils % 1.3 (0.00-5.0) % Basophils % 0.5 (0.0-0.4) % Absolute Granulocytes 7.23 H (1.4-6.9) x10^3/uL Basophils # 0.05 (0-0.4) x10^3/uL Sodium 138 (137-145) mmol/L Potassium 4.2 (3.5-5.1) mmol/L Chloride 104 (98-107) mmol/L Carbon Dioxide 25 (22-30) mmol/L Anion Gap 13.4 (5-15) MEQ/L BUN 9 (7-17) mg/dL Creatinine 0.58 (0.52-1.04) mg/dL Estimated GFR > 60.0 ML/MIN Glucose 88 (74-106) mg/dL Calcium 9.2 (8.4-10.2) mg/dL Total Bilirubin 0.50 (0.2-1.3) mg/dL AST 22 (14-36) U/L ALT 25 (0-35) U/L Alkaline Phosphatase 88 (38-126) U/L Serum Total Protein 6.9 (6.3-8.2) g/dL Albumin 4.2 (3.5-5.0) g/dL Lipase 71 (23-300) U/L Urinalys Dipstick Clnc MAIN LAB Urine Color YELLOW (YELLOW) Urine Appearance CLEAR (CLEAR) Urine pH 5.5 (5-6) Ur Specific [place] >=1.030 (1.005-1.025) POC Urine Protein Conf 30 (Negative) Urine Ketones NEGATIVE (NEGATIVE) Urine Nitrite NEGATIVE (NEGATIVE) Urine Bilirubin NEGATIVE (NEGATIVE) Urine Urobilinogen 0.2 (0-1) mg/dL Urine Leukocytes NEGATIVE (NEGATIVE) Urine WBC (Auto) 0-2 (0-5) /HPF Urine RBC (Auto) 0-2 (0-2) /HPF U Epithel Cells (Auto) RARE (FEW) /HPF Urine Bacteria (Auto) NONE (NEGATIVE) /HPF Urine RBC MODERATE (0-5) Jg/ul Urine Mucus (Auto) MODERATE (NEGATIVE) /HPF Ur Culture Indicated? YES Urine Glucose NEGATIVE (NEGATIVE) mg/dL Urine HCG, Qual (Negative) 07/26/21 Range/Units 12:58 WBC (4.0-10.5) x10^3/uL RBC (4.1-5.4) x10^6/uL Hgb (12.0-16.0) g/dL Hct (35-47) % MCV (78-100) fL MCH (26-32) pg MCHC (32-36) g/dL RDW (11.5-14.0) % Plt Count (150-450) x10^3/uL MPV (7.5-11.0) fL Gran % (36.0-66.0) % Immature Gran % (Auto) (0.00-0.4) % Nucleat RBC Rel Count (0.00-0.1) % Eos # (Auto) (0-0.5) x10^3/uL Immature Gran # (Auto) (0.00-0.03) x10^3u/L Absolute Lymphs (auto) (1.0-4.6) x10^3/uL Absolute Monos (auto) (0.0-1.3) x10^3/uL Absolute Nucleated RBC (0.00-0.01) x10^3u/L Lymphocytes % (24.0-44.0) % Monocytes % (0.0-12.0) % Eosinophils % (0.00-5.0) % Basophils % (0.0-0.4) % Absolute Granulocytes (1.4-6.9) x10^3/uL Basophils # (0-0.4) x10^3/uL Sodium (137-145) mmol/L Potassium (3.5-5.1) mmol/L Chloride (98-107) mmol/L Carbon Dioxide (22-30) mmol/L Anion Gap (5-15) MEQ/L BUN (7-17) mg/dL Creatinine (0.52-1.04) mg/dL Estimated GFR ML/MIN Glucose (74-106) mg/dL Calcium (8.4-10.2) mg/dL Total Bilirubin (0.2-1.3) mg/dL AST (14-36) U/L ALT (0-35) U/L Alkaline Phosphatase (38-126) U/L Serum Total Protein (6.3-8.2) g/dL Albumin (3.5-5.0) g/dL Lipase (23-300) U/L Urinalys Dipstick Clnc Urine Color (YELLOW) Urine Appearance (CLEAR) Urine pH (5-6) Ur Specific [place] (1.005-1.025) POC Urine Protein Conf (Negative) Urine Ketones (NEGATIVE) Urine Nitrite (NEGATIVE) Urine Bilirubin (NEGATIVE) Urine Urobilinogen (0-1) mg/dL Urine Leukocytes (NEGATIVE) Urine WBC (Auto) (0-5) /HPF Urine RBC (Auto) (0-2) /HPF U Epithel Cells (Auto) (FEW) /HPF Urine Bacteria (Auto) (NEGATIVE) /HPF Urine RBC (0-5) Jg/ul Urine Mucus (Auto) (NEGATIVE) /HPF Ur Culture Indicated? Urine Glucose (NEGATIVE) mg/dL Urine HCG, Qual NEGATIVE (Negative) - Progress Progress: improved Progress Note: 07/26/21 16:20 41 years old is evaluated for right-lower quadrant/pelvic pain. She is given symptomatic treatment for pain, on reevaluation feeling better. Has normal white count, grossly unremarkable chemistries. No UTI. CT showed normal appendix and a 4.5 cm ovarian cysts. Patient has ultrasound negative for torsion but does at this cyst. No other acute pathology and ultrasound/CAT scan. I believe it secondary to the cyst, offered pain medications to go home which she does not want and recommended taking Tylenol ibuprofen and outpatient primary care/STREET AND BUILDING DECORATOR follow-up. Discussed signs symptoms of worsening needing return to ER which he seems understanding. Stable for discharge. 07/26/21 16:35 And later wanted pain medications to go home and is given few [place] pills Counseled pt/family regarding: lab results, diagnosis, need for follow-up, rad results - Departure Departure Disposition: Home Clinical Impression: Ovarian cyst, RLQ abdominal pain Condition: Stable Critical Care Time: No Referrals: JOSEPH KING MD [Primary Care Provider] - Follow Up with PCP/3 days CARIDAD MOREIRA DO [ACTIVE STAFF] - Follow up/PCP as directed (3 DAYS FOR RE EVALUATION) Instructions: Acute Abdomen (Belly Pain), Adult (DC), Ovarian Cyst (DC) Additional Instructions: Take Tylenol/ibuprofen as needed for pain. Follow-up with primary care and STREET AND BUILDING DECORATOR for reevaluation. Return to ER for intractable pain, nausea vomiting/fever chills etc. Prescriptions: Hydrocodone/Acetaminophen [Hydrocodone-Acetamin 5-325 mg] 1 tab PO Q6HPRN PRN 3 Days #7 tablet MDD 4 PRN Reason: Pain Ibuprofen 600 mg PO Q6HPRN PRN 10 Days #20 tablet PRN Reason: Pain
[2021-07-26] MEDS ORDERED: MORPHINE SULFATE 4 MG INJ IV ONE (14:57)
--- NOTE | 2021-07-26 15:49 | XRAY ---
Indication: Right lower quadrant pain. Two-dimensional transvaginal pelvic sonogram performed. Comparison: Transabdominal pelvic sonogram May 13, 2021. Uterus again anteverted measuring 9.2 x 5.2 x 4.8 cm. 5 mm cervical nabothian cyst not seen on previous transabdominal exam. No other focal solid/cystic uterine mass. Endometrial stripe measures 5.8 mm. No endometrial cavity mass or fluid collection. Right ovary measures 6.9 x 5.0 x 4.3 cm and the left measures 2.8 x 1.8 x 1.7 cm with normal perfusion bilaterally. Right ovary demonstrates new 3.5 cm anechoic cyst. No suspicious solid adnexal mass or free fluid. Impression: New 3.5 cm right ovary cyst corresponding to same day CT finding. Incidental 5 mm nabothian cyst. Remaining transvaginal pelvic sonogram is negative.
[2021-07-26 16:43] VITALS: BP 134/73; PULSE 55
== END 2021-07-26 16:42 | disposition home or self-care (01) ==
LOC: ED 12:18
DX: N83.201 Unspecified ovarian cyst, right side (principal); R10.31 Right lower quadrant pain; R10.2 Pelvic and perineal pain; R11.0 Nausea; I10 Essential (primary) hypertension; Z72.0 Tobacco use; Z79.891 Long term (current) use of opiate analgesic; Z79.899 Other long term (current) drug therapy; Z28.310 Unvaccinated for COVID-19
CPT/HCPCS: 36000; 36415; 74176; 76830; 80053; 81015; 81025; 83690; 85025; 87086; 96360; 96374; 96375; 99284; J1885; J2270; J2405

== ENCOUNTER 2022-01-21 06:06 | Day surgery (SDC) | payer BC ==
[2022-01-21] MEDS ORDERED: Reglan 10 MG/2 ML IV ONE (06:42)
[2022-01-21] MEDS ORDERED: Versed 2 MG/2 ML Injection IV ONE (06:42)
[2022-01-21] MEDS ORDERED: Transderm Scop 1.5MG Patch TOP PRN (06:43)
[2022-01-21] MEDS ORDERED: CEFAZOLIN 2 GM-D5W BAG** 2 GM/50 ML ML IV SCH ×2 (07:00)
[2022-01-21] MEDS ORDERED: Lactated Ringers 1,000 ML IV SCH (07:00)
[2022-01-21] MEDS ORDERED: Versed 2 MG/2 ML Injection ONE (07:02)
[2022-01-21] MEDS ORDERED: Lactated Ringers 1,000 ML IV ONE ×2 (07:02→09:41)
[2022-01-21] MEDS ORDERED: Transderm Scop 1.5MG Patch ONE (07:02)
[2022-01-21] MEDS ORDERED: CEFAZOLIN 2 GM-D5W BAG** 2 GM/50 ML ML IV ONE (07:02)
[2022-01-21] MEDS ORDERED: Reglan 10 MG/2 ML ONE (07:02)
[2022-01-21 07:38] LABS: ALBUMIN 3.9 g/dL (3.5-5.0); ALKALINE PHOSPHATASE 76 U/L (38-126); ANION GAP 9.8 MEQ/L (5-15); BLOOD UREA NITROGEN 11 mg/dL (7-17); CHLORIDE 108 mmol/L (98-107); Calcium 8.5 mg/dL (8.4-10.2); Carbon Dioxide 26 mmol/L (22-30); Creatinine 1 0.58 mg/dL (0.52-1.04); EST GLOMERULAR FILTRATION RATE > 60.0 ML/MIN; Glucose 100 mg/dL (74-106); Potassium 4.1 mmol/L (3.5-5.1); SGOT/AST 36 U/L (14-36); SGPT/ALT 36 U/L (0-35); SODIUM 139 mmol/L (137-145); Total Protein 6.8 g/dL (6.3-8.2)
[2022-01-21] MEDS ORDERED: Pepcid 20 MG VIAL IV ONE (07:55)
[2022-01-21] MEDS ORDERED: DIPRIVAN 200 MG/20 ML IV ONE (08:41)
[2022-01-21] MEDS ORDERED: Decadron 4 MG INJ ONE (08:41)
[2022-01-21] MEDS ORDERED: Xylocaine-Mpf 2% 5 Ml Vial ONE (08:41)
[2022-01-21] MEDS ORDERED: SUBLIMAZE 100 MCG/2 ML ONE (08:41)
[2022-01-21] MEDS ORDERED: Zofran 4 MG/2 ML VIAL ONE (08:41)
[2022-01-21] MEDS ORDERED: ROBINUL ONE (09:30)
[2022-01-21] MEDS ORDERED: Pepcid 20 MG VIAL IV SCH (10:00)
[2022-01-21 11:37] VITALS: BP 117/77; PULSE 62; O2SAT 98
--- NOTE | 2022-01-22 12:01 | OP ---
SURGERY DATE/TIME: 01/21/2022 0906 PREOPERATIVE DIAGNOSIS: Menorrhagia and LIZA (vulvar intraepithelial neoplasia) 1. POSTOPERATIVE DIAGNOSIS: Menorrhagia and LIZA (vulvar intraepithelial neoplasia) 1. PROCEDURE: Hysteroscopy D&C, ablation and wide local excision of perineum. SURGEON: Young Roberson D.O. FARM OPERATIONS TECHNICAL DIRECTOR: Edie Lew heating technician. ANESTHESIA: General. ESTIMATED BLOOD LOSS: Minimal. COMPLICATIONS: None. INDICATIONS: The risks, benefits, indications and alternatives of the procedure were reviewed with the patient prior to procedure. The patient understood the risk of infection, bleeding, bowel injury, bladder injury, ureteral injury, uterine perforation, pelvic infection and thromboembolic disorder associated with this surgery and desires to have this surgery as a possible means to alleviate her current medical condition. DESCRIPTION OF PROCEDURE AND FINDINGS: At this point the patient is taken to the operating room, given general sedation, placed in dorsal lithotomy position, prepped and draped in the usual sterile fashion. A weighted speculum is then placed into the patient's vagina and the anterior lip of the cervix is grasped with a single tooth tenaculum. Endocervical dilators were advanced through the endocervical canal as a means to dilate the cervix and the uterus was sounded to approximately 7 cm. From this point, a 5 mm hysteroscope was then placed in the endocervical region towards the fundal region where visualization appeared to be within normal limits with no gross abnormalities that were noted. The hysteroscope was then removed and a curette was then placed into the fundus of the uterus and curettage was performed in all quadrants of the uterus retrieving a mild amount of tissue. From this point, the curette was removed and the NovaSure was introduced through the endocervical region towards the fundal region, retracted approximately 1 cm with a length of 6.5 cm and a width of 3.0 cm. The instrument was engaged and the machine was turned on for an ablative time of 57 seconds. After complete ablation, the instrument was disengaged and removed from the uterine cavity without complication. At this point all instruments were removed from the patient's vaginal region. At this point approximately 1 cm distal to the vaginal opening an elliptical incision was made at the previous biopsy site on the perineum with a #15 blade and approximately 2 x 2 cm dimension was excised at the perineal site in elliptical fashion. After excision the excision was then repaired with 3-0 chromic suture in interrupted fashion. Hemostasis was obtained. From this point the patient was then taken out of the dorsal lithotomy position, was taken out of anesthesia, and was then taken to the recovery room in stable condition. All instruments and laps were accounted for x2.
== END 2022-01-21 11:30 | disposition home or self-care (01) ==
LOC: SDC 06:06
PROVIDERS: ATTEND Obstetrics & Gynecology
DX: N92.0 Excessive and frequent menstruation with regular cycle (principal); N90.0 Mild vulvar dysplasia
CPT/HCPCS: 36415; 56620; 58563; 80053; 81025; 93005; 96374; J0690; J1100; J2250; J2405; J2704; J3010; A9270-GY

== ENCOUNTER 2024-04-12 17:15 | Emergency (ER) | payer BC ==
[2024-04-12 17:25] VITALS: PULSE 74; TEMP 97.9; O2SAT 100
[2024-04-12] MEDS ORDERED: TORAdol 30 mg Injection ONE (17:45)
[2024-04-12] MEDS ORDERED: DECADRON 10MG INJ. ONE (17:45)
[2024-04-12] MEDS: DECADRON 10MG INJ. IM ONE (17:48)
[2024-04-12] MEDS: TORAdol 30 mg Injection IM ONE (17:51)
--- NOTE | 2024-04-12 17:51 | ERPHSYRPT ---
- History of Present Illness Time Seen by Provider: 04/12/24 17:46 Source: patient Exam Limitations: no limitations Patient Subjective Stated Complaint: González low back pain that radiates down both legs Triage Nursing Assessment: Pt brought self to the ER, hypertensive, rates pain as 9/10, pulses normal, skin n/w/d, denies N&V, denies injury, no difficulty breathing Physician History: 43-year-old female presents to our ED for evaluation of low back pain. Patient states low back pain started approximately 1 week ago. Pain has gotten progressively worse. Pain is located at her midline lumbar spine radiates across bilaterally. Patient states pain also radiates down into both legs. No fever no recent back procedure no change in bowel bladder function no saddle anesthesia. Symptoms are progressive. Symptoms are moderate in intensity. Pain worse with movement and palpation. Pain improves with rest. Patient otherwise feels well. She voices no other complaints or concerns at this time. Portions of this note were created with voice recognition technology. There may be grammatical, spelling, punctuation or sound alike errors Timing/Duration: today Method of Injury: unknown Quality: aching Back Pain Radiation: lower legs Severity of Pain-Max: moderate Severity of Pain-Current: mild Modifying Factors: Improves With: movement Associated Symptoms: denies symptoms Previous symptoms: no prior history Allergies/Adverse Reactions: amlodipine besylate [From Norvasc] Allergy (Intermediate, Verified 04/12/24 17:25) Swelling of Feet lisinopril Allergy (Mild, Verified 04/12/24 17:25) Cough labetalol Adverse Reaction (Intermediate, Verified 04/12/24 17:25) Irregular Heart Beat nifedipine Adverse Reaction (Mild, Verified 04/12/24 17:25) Skin Irritation Home Medications: Valsartan 1 tab PO DAILY 07/26/21 [History] Cetirizine HCl [Zyrtec] 10 mg PO DAILY 01/07/22 [History] Ergocalciferol (Vitamin D2) [Vitamin D2] 1 cap PO WEEKLY 01/07/22 [History] Fluticasone Propionate [Flonase NASAL] 2 sprays IH DAILY 01/07/22 [History] Omeprazole 1 cap PO DAILY 01/21/22 [History] Duloxetine HCl 30 mg [Cymbalta 30 MG Capsule] 30 mg PO DAILY 04/12/24 [History] Hx Tetanus, Diphtheria Vaccination/Date Given: No Hx Influenza Vaccination/Date Given: No Hx Pneumococcal Vaccination/Date Given: No Travel Risk - International Travel Have you traveled outside of the country in past 3 weeks: No - Emerging Infectious Disease Are you exhibiting symptoms associated with any current EIDs: No - Review of Systems Constitutional: No Symptoms, No Fever, No Chills Eyes: No Symptoms Ears, Nose, & Throat: No Symptoms Respiratory: No Symptoms, No Cough, No Dyspnea Cardiac: No Symptoms, No Chest Pain, No Edema, No Syncope Abdominal/Gastrointestinal: No Symptoms, No Abdominal Pain, No Nausea, No Vomiting, No Diarrhea Genitourinary Symptoms: No Symptoms, No Dysuria Musculoskeletal: No Symptoms, No Back Pain, No Neck Pain Skin: No Symptoms, No Rash Neurological: No Symptoms, No Dizziness, No Focal Weakness, No Sensory Changes Psychological: No Symptoms Endocrine: No Symptoms Hematologic/Lymphatic: No Symptoms Immunological/Allergic: No Symptoms All Other Systems: Reviewed and Negative - Past Medical History Pertinent Past Medical History: Yes Neurological History: No Pertinent History ENT History: No Pertinent History Cardiac History: Hypertension Respiratory History: No Pertinent History Endocrine Medical History: No Pertinent History Musculoskeletal History: No Pertinent History GI Medical History: GERD, Other History: Other Psycho-Social History: Anxiety Female Reproductive Disorders: No Pertinent History Other Medical History: cysts on kidneys--been to kidney specialist. fatty liver - Past Surgical History Past Surgical History: Yes Neuro Surgical History: No Pertinent History Cardiac: No Pertinent History Respiratory: No Pertinent History Gastrointestinal: No Pertinent History Genitourinary: No Pertinent History Musculoskeletal: No Pertinent History Female Surgical History: Dilation & Curettage, Section, Tubal Ligation Other Surgical History: d/c, X 2, EGD Significant Family History: heart disease, hypertension - Female History Hx Now: No (tubal) - Social History Smoking Status: Current every day smoker How long have you smoked: 20 years Exposure to second hand smoke: Yes Drug Use: none - Social Determinants of Health Will the patient participate in the screening: Yes Do you worry about a steady place to live?: No Do you have any problems with any of the following?: No known problems In the past 12 months,have you had to go without utilities?: No Transportation Issues: No Has anyone in your support network made you feel unsafe?: No Have you or anyone in your house had to go w/o enough food: No - Nursing Vital Signs Nursing Vital Signs: Initial Vital Signs Temperature 97.9 F 04/12/24 17:19 Pulse Rate 74 04/12/24 17:19 Blood Pressure 145/80 04/12/24 17:19 O2 Sat by Pulse Oximetry 100 04/12/24 17:19 Pain Scale Pain Intensity [Lower Distal 9 Back] Pain Intensity 0 - Physical Exam General Appearance: no apparent distress, alert Eye Exam: PERRL/EOMI, eyes nml inspection Neck Exam: normal inspection, non-tender, supple, full range of motion, No meningismus, No midline tenderness Respiratory Exam: normal breath sounds, lungs clear, airway intact, No r espiratory distress Cardiovascular Exam: regular rate/rhythm, normal heart sounds Gastrointestinal Exam: soft, No tenderness, No mass Extremity Exam: normal inspection, normal range of motion, No calf tenderness, No pedal edema Neurologic Exam: alert, oriented x 3, cooperative, civil engineering design draftsperson II-XII nml as tested, normal mood/affect, nml station & gait, sensation nml, No motor deficits Skin Exam: normal color, warm, dry, No rash Lymphatic Exam: No adenopathy SpO2 Interpretation: normal SpO2: 100 O2 Delivery: Room Air - Course Nursing assessment & vital signs reviewed: Yes - CT Exams Lumbar Spine CT Interpretation: Tele-radiologist Report (No acute findings) Ordered Tests: Active Orders 24 hr Category Date Time Status LUMBAR SPINE W/O [CT] Stat Exams 04/12/24 17:40 Taken UA W/RFX UR CULTURE Stat Lab 04/12/24 17:57 Completed Medication Summary Discontinued Medications Generic Name Dose Route Start Last Admin Trade Name Freq PRN Reason Stop Dose Admin Dexamethasone Sodium Phosphate 10 mg 04/12/24 17:41 04/12/24 17:48 Dexamethasone Sod Phosphate 10 Mg/Ml IM 04/12/24 17:42 10 mg STAT ONE Administration Dexamethasone Sodium Phosphate Confirm 04/12/24 17:45 Dexamethasone Sod Phosphate 10 Mg/Ml Administered 04/12/24 17:46 Dose 10 mg .ROUTE .STK-MED ONE Ketorolac Tromethamine 60 mg 04/12/24 17:40 04/12/24 17:51 Ketorolac Tromethamine 30 Mg/Ml Inj IM 04/12/24 17:41 60 mg STAT ONE Administration Ketorolac Tromethamine Confirm 04/12/24 17:45 Ketorolac Tromethamine 30 Mg/Ml Inj Administered 04/12/24 17:46 Dose 60 mg .ROUTE .STK-MED ONE Lab/Rad Data: Laboratory Results 04/12/24 Range/Units 17:57 Urine Color Yellow (Yellow) Urine Appearance Clear (Clear) Urine pH 5.5 (4.6-8.0) Ur Specific [place] 1.020 (1.005-1.030) Urine Protein Negative (Negative) Urine Glucose (UA) Negative (Negative) mg/dL Urine Ketones Negative (Negative) Urine Blood Large A (Negative) Urine Nitrite Negative (Negative) Urine Bilirubin Negative (Negative) Urine Urobilinogen 1.0 A (0.2) mg/dL Ur Leukocyte Esterase Negative (Negative) U Hyaline Cast (Auto) NONE SEEN (0-2) /LPF Urine Microscopic RBC >100 A (0-5) /HPF Urine Microscopic WBC 0-2 (0-5) /HPF Ur Epithelial Cells None Seen (None Seen) /HPF Urine Bacteria None Seen (None Seen) /HPF Urine Culture Reflexed NO (NO) - Progress Progress: improved Progress Note: 43-year-old female presents to our ED with low back pain. Physical exam reveals tenderness to palpation along the low back crossing the lumbar spine. UA shows hematuria. CT shows no acute findings there is minimal L5-S1 degenerative disc disease. Patient received Toradol and Decadron. Patient reassessed. Pain improved. Patient neurovascular tact distally. No indication for further workup at this time. Will discharge home. Patient agrees to follow-up with her primary care doctor within 48 hours for reevaluation. Portions of this note were created with voice recognition technology. There may be grammatical, spelling, punctuation or sound alike errors 04/12/24 19:57 Counseled pt/family regarding: lab results, diagnosis, need for follow-up, rad results - Departure Departure Disposition: Home Clinical Impression: Back pain, Hematuria Condition: Stable Critical Care Time: No Referrals: JOSEPH KING MD [Primary Care Provider] - Follow up/PCP as directed Additional Instructions: Discharge/Care Plan PAOLO GUTIERREZ was seen on 04/12/24 in the Emergency Room. The patient was counseled regarding Diagnosis,Lab results, Imaging studies, need for follow up and when to return to the Emergency Room. Prescriptions given: Discharge Note I have spoken with the patient and/or caregivers. I have explained the patient's condition, diagnosis and treatment plan based on the information available to me at this time. I have answered the patient's and/or caregiver's questions and addressed any concerns. The patient and/or caregivers have as good understanding of the patient's diagnosis, condition and treatment plan as can be expected at this point. The vital signs have been stable. The patient's condition is stable and appropriate for discharge from the emergency department. The patient will pursue further outpatient evaluation with the primary care physician or other designated or consulting physician as outlined in the discharge instructions. The patient and/or caregivers are agreeable to this plan of care and follow-up instructions have been explained in detail. The patient and/or caregivers have received these instruction. The patient/and or caregivers are aware that any significant change in condition or worsening of symptoms should prompt an immediate return to this or the closest emergency department or call 911. Prescriptions: Ketorolac Trometh 10 mg Tab [TORAdol 10 MG TABLET] 10 mg PO TID 5 Days #15 tablet
[2024-04-12 18:36] LABS: Appearance Clear (Clear); Bacteria None Seen /HPF (None Seen); Bilirubin Negative (Negative); Blood Large (Negative); Epithelial Cells None Seen /HPF (None Seen); Glucose, Urine Negative (Negative); Hyaline Casts NONE SEEN /LPF (0-2); Ketones Negative (Negative); Leukocyte Esterase Negative (Negative); Nitrite Negative (Negative); Ph 5.5 (4.6-8.0); Protein,Urine Dip Negative (Negative); RBC >100 /HPF (0-5); WBC 0-2 /HPF (0-5)
[2024-04-12 19:56] VITALS: BP 122/73
--- NOTE | 2024-04-13 08:45 | XRAY ---
Indication: Low back pain. No known injury. Multiple contiguous axial images obtained through the lumbar spine. Sagittal and coronal reformatted images obtained. Comparison: CT abdomen/pelvis July 26, 2021. Stable benign L4/L5 sclerotic lesions, minimal multilevel anterior endplate spurring, and minimal L5-S1 broad-based disc bulge. No acute fracture, suspicious bony lesions, or spinal canal stenosis. Facets and visualized SI joints are bilaterally symmetric. Sagittal and coronal reformatted images demonstrates normal alignment. Vertebral body heights/disc spaces maintained. No acute compression fracture or subluxation. Visualized noncontrasted soft tissues are unremarkable. Impression: Stable CT lumbar spine again demonstrating benign L4/L5 sclerotic lesions and minimal multilevel degenerative changes. No new or acute findings on this noncontrast exam.
== END 2024-04-12 20:07 | disposition home or self-care (01) ==
LOC: ED 17:15
DX: M54.50 Low back pain, unspecified (principal); R31.9 Hematuria, unspecified; I10 Essential (primary) hypertension; Z79.899 Other long term (current) drug therapy; Z72.0 Tobacco use
CPT/HCPCS: 72131; 81001; 96372; 99284; J1100; J1885